=== PATIENT | male | born 1970 | race Caucasian/White ===

== ENCOUNTER → 2017-12-19 | Day surgery (SDC) | payer OTHER ==
[~2017-12-19] MED LIST: BUPIVACAINE HCL 0.5 % INJ/PF 30 ML SDV ONE; LIDOCAINE 1% INJ-PF (10 MG/ML) 30 ML SDV ONE; LIDOCAINE 2% INJ (20 MG/ML) 20 ML MDV ONE; METHYLPREDNISOLONE ACETATE INJ 40 MG/1 ML ML ONE
--- NOTE | 2017-12-19 08:58 | Operative Report ---
DATE OF PROCEDURE: [12/19/17] ANESTHESIA: [local] COMPLICATIONS: [none] CONSENT: A full description of the procedure was provided including benefits as well as possible complications. All questions were answered and informed consent was given and signed. ASA guidelines for fasting were verified prior to sedation. PROCEDURE IN DETAIL The patient was brought into the fluoroscopy suite and positioned into the prone position on the fluoroscopy table and allowed to adjust to a position of comfort. A grounding pad was placed on the [LEFT] thigh. The lumbar region was widely prepped with a chloraprep solution, allowed to air dry and draped in standard sterile surgical fashion. Local anesthesia was provided by [2] mL of [1 ]% [lidocaine] delivered with a 25 g needle. A 17g 100mm radiofrequency introducer needle was placed to the planned anatomic targets guided with intermittent fluoroscopy with a perpendicular approach to terminally place at the junction of the superior articular process and the transverse process of the [RIGHT] L4 and the base of the sacral ala on the [ RIGHT] for the L5 medial branch nerve. The stylets were removed and radiofrequency probes with a 4mm active tip were then inserted. Needle tip position of the probes was verified in the AP, oblique, and lateral views. At each site, the medial branch nerve was stimulated at 2 Hz to a maximum 1-2 volts determined to finalize safe needle and electrode placement. The patient was awake and responsive during this portion of the procedure. Each target was anesthetized with 1-2 mL of [2]% [lidocaine] for anesthesia for lesioning and then each target was lesioned at 80 degrees Celsius for 2 minutes and 30 seconds. Tissue impedences were noted to be between 250 and 500 Ohms. The procedure then was performed in the exact manner on the left at the same levels in the same manner. When completed, 1 cc of solution of 0.25% marcaine with 40mg of depomedrol was placed in each needle. The electrodes and needles were then removed and bandages placed over the needle placement sites bilaterally, the patient then returned to the supine position on a stretcher and transported to the recovery room without hemodynamic, neurologic, or allergic reactions. Fluoroscopic images were printed for hard copy recording and digitally archived. POST PROCEDURE EVALUATION: The patient was comfortable in the recovery room. The patient is aware that pain may worsen before remitting and 4-6 weeks may be required prior to the onset of pain relief. IMPRESSION: 1. Technically successful [Bilateral] L4 and L5 radiofrequency neurotomy for denervation on the bilaterally without complication. 2. RTC in [6] weeks. 3. Estimated Blood Loss: [1ml]
== END ==
LOC: RAD 07:35
PROVIDERS: ATTEND Student in an Organized Health Care Education/Training Program
DX: M47.817 Spondylosis without myelopathy or radiculopathy, lumbosacral region (principal)
CPT/HCPCS: 64635 ×2; 64636 ×2; J3490 ×3; J1020

== ENCOUNTER 2018-03-06 10:32 | Day surgery (SDC) | payer OTHER ==
[2018-03-06] MEDS ORDERED: PROPOFOL INJ 200 MG/20 ML VIAL IV ONE (12:21)
[2018-03-06] MEDS ORDERED: PROMETHAZINE HCL INJ 25 MG/1 ML VIAL IV PRN ×2 (12:31)
[2018-03-06] MEDS ORDERED: MEPERIDINE HCL/PF INJ 25 MG/1 ML DISP.SYRIN IV PRN (12:31)
[2018-03-06] MEDS ORDERED: OXYCODONE-ACETAMINOPHEN 5-325 MG TABLET PO PRN ×2 (12:31)
[2018-03-06] MEDS ORDERED: DIPHENHYDRAMINE HCL 50 MG/ML VIAL IV PRN (12:31)
[2018-03-06] MEDS ORDERED: FENTANYL CITRATE INJ/PF 100 MCG/2 ML AMPUL IV PRN ×3 (12:31)
[2018-03-06] MEDS ORDERED: MIDAZOLAM 2 MG/2 ML INJ ONE (12:39)
[2018-03-06] MEDS ORDERED: FENTANYL CITRATE INJ/PF 100 MCG/2 ML AMPUL ONE (12:39)
[2018-03-06] MEDS ORDERED: SIMETHICONE 80 MG TAB.CHEW PO PRN (13:37)
[2018-03-06] MEDS ORDERED: ACETAMINOPHEN 325 MG TABLET PO PRN (13:37)
[2018-03-06] MEDS ORDERED: PROMETHAZINE HCL INJ 25 MG/1 ML VIAL INJ PRN (13:40)
[2018-03-06] MEDS ORDERED: DEXTROSE 5%-1/2 NORMAL SALINE 1,000 ML IV PRN (13:41)
--- NOTE | 2018-03-06 14:26 | Operative Report ---
Operative Report DATE OF SURGERY: 03/06/18 Operative Report: The risks, benefits and alternatives of the procedure including risks of bleeding, perforation requiring surgery are explained to the patient in detail and informed consent is obtained. The patient was taken to the operating room and placed in the left, lateral decubital position. Timeout was called. Propofol medications administered. A rectal examination is done which did not reveal any masses, tears or fissures. An Olympus videoscope was inserted into the patient's rectum. The scope was then carefully advanced all the way to the cecum. The cecum was identified by the usual anatomical landmarks including the ileocecal valve as well as the appendiceal office. Photodocumentation is obtained. The scope was then sequentially pulled back via the various segments of the colon including the ascending colon, hepatic flexure, transverse colon, splenic flexure, descending colon and and finally in to the rectosigmoid portions of the colon. Retroflexion maneuvers performed. The risks benefits and alternatives of the procedure explained to the patient in detail and informed consent is obtained.A GIF Olympus video scope was inserted into the patient's mouth and hypopharynx ,the esophagus is identified intubated and insufflated, the scope was then advanced through the esophagus stomach and duodenum, retroflexion maneuver is done, the esophagus stomach and first and second portions of the duodenum examined PREOPERATIVE DIAGNOSIS: Nausea, melena. Change of bowel habits POSTOPERATIVE DIAGNOSIS: Right side colon Information status post biopsy. Internal hemorrhoids. Gastritis. Gastric erosion status post biopsy. Duodenitis OPERATION: Colonoscopy with biopsy. EGD with biopsy SURGEON: FARZAD EMERSON ANESTHESIA: LMAC TISSUE REMOVED OR ALTERED: As noted above. COMPLICATIONS: None. ESTIMATED BLOOD LOSS: None. INTRAOPERATIVE FINDINGS: As noted above. PROCEDURE: Patient tolerated the procedure well. No immediate postprocedure complications are noted. Patient discharged in good condition. Discharge date 03/06/2018. Discharge diet: Regular. Discharge activity: Regular. 2-3 week follow-up to discuss findings. Patient is instructed to call the office or proceed to the emergency room should there be any further problems or questions. We will wait on the pathology.
[2018-03-06 15:19] VITALS: BP 126/67
== END 2018-03-06 14:45 | disposition home or self-care (01) ==
LOC: OROUT 10:32
PROVIDERS: ATTEND Internal Medicine Gastroenterology
PROC: 0DBE8ZX Excision of Large Intestine, Via Natural or Artificial Opening Endoscopic, Diagnostic (ICD-10-PCS; principal; 2018-03-06 12:30)
PROC: 0DB68ZX Excision of Stomach, Via Natural or Artificial Opening Endoscopic, Diagnostic (ICD-10-PCS; 2018-03-06 12:30)
DX: K52.832 Lymphocytic colitis (principal); K64.8 Other hemorrhoids; K29.70 Gastritis, unspecified, without bleeding; K29.80 Duodenitis without bleeding; R19.4 Change in bowel habit; K92.1 Melena; R11.0 Nausea
CPT/HCPCS: 43239; 45380; 88305 ×2; J2250; J3010; J2704; 813

== ENCOUNTER → 2018-09-28 | Outpatient (CLI) | payer OTHER ==
--- NOTE | 2018-09-28 15:15 | RADIOLOGY REPORT (SQ) ---
EXAM DESCRIPTION: CHEST PA/LATERAL COMPLETED DATE/TIME: 09/28/2018 3:07 pm REASON FOR STUDY: WHEEZING COMPARISON: None. TECHNIQUE: Frontal and lateral radiographic views of the chest acquired. NUMBER OF VIEWS: Two view. LIMITATIONS: None. FINDINGS: LUNGS AND PLEURA: No opacities, masses or pneumothorax. No pleural effusion. MEDIASTINUM AND HILAR STRUCTURES: No masses or contour abnormalities. HEART AND VASCULAR STRUCTURES: Heart normal size. No evidence for failure. BONES: No acute findings. HARDWARE: None in the chest. OTHER: No other significant finding. IMPRESSION: NO SIGNIFICANT RADIOGRAPHIC FINDING IN THE CHEST. TECHNICAL DOCUMENTATION: JOB ID: [id number] [employer]- All Rights Reserved Reading location - IP/workstation name: [email or web address]
== END ==
LOC: OD 14:56
PROVIDERS: ATTEND Nurse Practitioner Family
DX: R06.2 Wheezing (principal)
CPT/HCPCS: 71046

== ENCOUNTER 2018-09-29 23:42 | Inpatient (IN) | payer OTHER ==
[2018-09-29] MEDS ORDERED: MAGNESIUM SULFATE/D5W 2 GM/200 ML RTUPB IV ONE (23:54)
[2018-09-29] MEDS ORDERED: IPRATROPIUM/ALBUTEROL 0.5-2.5 MG/3 ML AMPUL NEB ONE (23:54)
[2018-09-30] MEDS ORDERED: KETOROLAC TROMETHAMINE INJ/PF 30 MG/1 ML SDV IV ONE (00:01)
--- NOTE | 2018-09-30 00:03 | ER Document Report ---
ED General - General Stated Complaint: SHORTNESS OF BREATH Time Seen by Provider: 09/29/18 23:54 Primary Care Provider: ONEYDA FORD FNP-BC [Primary Care Provider] - Follow up as needed Notes: Patient is a 47-year-old male with a history of smoking. No history of asthma. Presents with 5 days of worsening difficulty breathing and wheezing. He has pain in his chest whenever he coughs. He has subjective fevers at home. No vomiting or diarrhea. Paramedics gave him a DuoNeb treatment as well as Solu- Medrol in route. He takes medications for history of epilepsy and PTSD. He denies any medical allergies. No other complaints at this time. TRAVEL OUTSIDE OF THE [place] IN LAST 30 DAYS: No - Related Data Allergies/Adverse Reactions: No Known Allergies Allergy (Verified 03/23/15 23:04) Past Medical History - Social History Smoking Status: Current Every Day Smoker Frequency of alcohol use: None Drug Abuse: None Family History: Reviewed & Not Pertinent - Past Medical History Cardiac Medical History: Denies: Hx Coronary Artery Disease, Hx Heart Attack, Hx Hypertension Pulmonary Medical History: Denies: Hx Asthma, Hx Bronchitis, Hx COPD, Hx Pneumonia Neurological Medical History: Reports: Hx Seizures - LAST X 1 WEEK AGO. Denies: Hx Cerebrovascular Accident Musculoskeletal Medical History: Denies Hx Arthritis Psychiatric Medical History: Reports: Hx Depression - Immunizations Hx Diphtheria, Pertussis, Tetanus Vaccination: Yes Hx Pneumococcal Vaccination: 08/05/15 Review of Systems - Review of Systems Notes: My Normal Review Basic REVIEW OF SYSTEMS: CONSTITUTIONAL : Fevers EENT: Denies eye, ear, throat, or mouth pain or symptoms. Denies nasal or sinus congestion. CARDIOVASCULAR: Pain with coughing and breathing. RESPIRATORY: Difficulty breathing and wheezing. GASTROINTESTINAL: Denies abdominal pain. Denies nausea, vomiting, or diarrhea. MUSCULOSKELETAL: Denies neck or back pain or joint pain or swelling. SKIN: Denies rash or skin lesions. NEUROLOGICAL: Denies altered mental status or loss of consciousness. Denies headache. Denies weakness or paralysis or loss of use of either side. Denies problems with gait or speech. Denies sensory or motor loss. ALL OTHER SYSTEMS REVIEWED AND NEGATIVE. Physical Exam - Vital signs Vitals: Temp 98.5 F 09/29/18 23:42 - Notes Notes: General Appearance: Well nourished, alert, cooperative, no acute distress, moderate obvious discomfort. Vitals: reviewed, See vital signs table. Head: no swelling or tenderness to the head Eyes: PERRL, EOMI, Conjuctiva clear Mouth: No decreasd moisture Neck: Supple, no neck tenderness, No thyromegaly Lungs: Diffuse wheezing. Fair air exchange. Some rhonchorous breath sounds. Heart: Normal rate, Regular rythm, No murmur, no rub Abdomen: Normal BS, soft, No rigidity, No abdominal tenderness, No guarding, no rebound, no abdominal masses, no organomegaly Extremities:good pulses in all extremities, no swelling or tenderness in the extremities, no edema. Skin: warm, dry, appropriate color, no rash Neuro: speech clear, oriented x 3, normal affect, responds appropriately to questions. Course - Re-evaluation Re-evalutation: 09/30/18 01:30 Clinically patient looks improved. His lung hudson sound improved as well. He still has some scattered wheezing but is moving air much better. I will give him 1 more breathing treatment. I will give him a dose of doxycycline his chest x-ray shows evidence of developing pneumonia. I will monitor him for low bit longer to make sure his oxygen stays within normal range and that his difficulty breathing does not return. 09/30/18 03:51 I did try to wean the patient off oxygen twice. Both times O2 saturations went into the 80s. He cannot tolerate nasal cannula. He says he is too much congestion and his sats will not maintain with that. I therefore placed him on a Ventimask. With the Ventimask he is 95%. He still has some scattered wheezing however it is much improved as opposed to when he first arrived. Being that the patient has pneumonia, wheezing, and oxygen requirement I feel it is appropriate to have admitted to the hospital. I did discuss the case with Dr. Cordova, her hospitalist, who agrees to admit the patient. Dictation of this chart was performed using voice recognition software; therefore, there may be some unintended grammatical errors. - Vital Signs Vital signs: Temp Pulse Resp BP Pulse Ox 98.5 F 24 H 123/58 L 94 09/29/18 23:42 09/30/18 03:00 09/30/18 02:01 09/30/18 03:00 - Laboratory Result Diagrams: 09/29/18 23:55 09/29/18 23:55 Laboratory results interpreted by me: 09/29/18 09/29/18 23:55 23:55 WBC 12.5 H RBC 3.88 L Hgb 13.2 L MCV 98 H MCH 34.1 H Seg Neutrophils % 83.5 H Lymphocytes % 10.3 L Absolute Neutrophils 10.4 H Sodium 134.8 L Chloride 97 L Glucose 123 H - EKG Interpretation by Me Additional EKG results interpreted by me: 09/29/18 23:59 EKG is reviewed and interpreted by me. EKG shows sinus rhythm with a rate of [address] segment elevation or depression. No ischemic T wave inversions. TN interval, QRS duration, QT intervals are within normal range. No EKGs available for comparison. Discharge - Discharge Clinical Impression: Pneumonia Qualifiers: Pneumonia type: due to unspecified organism Laterality: bilateral Lung location: unspecified part of lung Qualified Code(s): J18.9 - Pneumonia, unspecified organism Condition: Stable Disposition: ADMITTED OBSERVATION Admitting Provider: Hospitalist Unit Admitted: Telemetry Referrals: ONEYDA FORD FNP-BC [Primary Care Provider] - Follow up as needed
[2018-09-30] MEDS: MAGNESIUM SULFATE/D5W 1 GM/100 ML RTUPB IV SCH ×2 (00:05→00:58)
[2018-09-30 00:06] LABS: VENOUS BLOOD BASE EXCESS 0.9 mmol/L; VENOUS BLOOD PCO2 43.7 mmHg (35-63); VENOUS BLOOD PH 7.39 (7.30-7.42)
[2018-09-30 00:13] LABS: ABSOLUTE EOSINOPHILS # (AUTO) 0.1 10^3/uL (0.0-0.6); ABSOLUTE LYMPHOCYTES (AUTO) 1.3 10^3/uL (0.5-4.7); ABSOLUTE MONOCYTES (AUTO) 0.6 10^3/uL (0.1-1.4); ABSOLUTE NEUT (AUTO) 10.4 10^3/uL (1.7-8.2); BASOPHILS % (AUTO) 0.3 % (0-2); EOSINOPHILS % (AUTO) 0.9 % (0-6); HEMATOCRIT 38.2 % (37.9-51.0); HEMOGLOBIN 13.2 g/dL (13.5-17.0); LYMPHOCYTES % (AUTO) 10.3 % (13-45); MEAN CORPUSCULAR HEMOGLOBIN 34.1 pg (27.0-33.4); MEAN CORPUSCULAR HGB CONC 34.7 g/dL (32.0-36.0); MEAN CORPUSCULAR VOLUME 98 fl (80-97); PLATELET COUNT 203 10^3/uL (150-450); RED BLOOD COUNT 3.88 10^6/uL (4.35-5.55); RED CELL DISTRIBUTION WIDTH 13.4 % (11.5-14.0); SEGMENTED NEUTROPHILS % (AUTO) 83.5 % (42-78); TOTAL CELLS COUNTED % (AUTO) 100 %; WHITE BLOOD COUNT 12.5 10^3/uL (4.0-10.5)
[2018-09-30 00:19] LABS: ANION GAP 10 (5-19); BLOOD UREA NITROGEN 13 mg/dL (7-20); CALCIUM 8.7 mg/dL (8.4-10.2); CARBON DIOXIDE 28 mmol/L (22-30); CHLORIDE 97 mmol/L (98-107); GLUCOSE 123 mg/dL (75-110); POTASSIUM 3.7 mmol/L (3.6-5.0); SODIUM 134.8 mmol/L (137-145)
--- NOTE | 2018-09-30 01:12 | RADIOLOGY REPORT (SQ) ---
EXAM DESCRIPTION: XR CHEST 1 VIEW COMPLETED DATE/TME: 09/29/2018 23:54 CLINICAL HISTORY: 47 years, Male, dyspnea, wheezing COMPARISON: None. NUMBER OF VIEWS: TECHNIQUE: LIMITATIONS: None. FINDINGS: There is infiltrate at the right lung base, compatible with pneumonia. There may also be patchy infiltrate in the left mid lung. The heart and mediastinum are unremarkable. Pulmonary vascularity appears normal. IMPRESSION: Pneumonia. copyright 2010 [employer]- All Rights Reserved
[2018-09-30 01:15] LABS: A TYPE INFLUENZA AG NEGATIVE (NEGATIVE); B INFLUENZA AG NEGATIVE (NEGATIVE)
[2018-09-30] MEDS ORDERED: ALBUTEROL SULFATE 0.083% NEB 2.5 MG/3 ML AMPUL NEB ONE (01:30)
[2018-09-30] MEDS ORDERED: DOXYCYCLINE HYCLATE 100 MG TABLET PO ONE (01:30)
[2018-09-30] MEDS ORDERED: HYDRALAZINE HCL INJ/PF 20 MG/1 ML SDV IV PRN (03:51)
[2018-09-30] MEDS ORDERED: CHLORPHENIRAMINE MALEATE 4 MG TABLET PO ONE (03:51)
[2018-09-30] MEDS ORDERED: IPRATROPIUM/ALBUTEROL 0.5-2.5 MG/3 ML AMPUL NEB PRN (03:52)
[2018-09-30] MEDS ORDERED: ACETAMINOPHEN 325 MG TABLET PO PRN (03:52)
[2018-09-30] MEDS ORDERED: GUAIFENESIN SYRP 200 MG/10 ML UDC PO PRN (03:52)
[2018-09-30] MEDS ORDERED: FLUTICASONE NASAL SPRAY 50 MCG/SPRY 120 SPRAY/16 GM NASL ONE (04:30)
[2018-09-30] MEDS: LEVOFLOXACIN 750 MG/D5W RTU 750 MG/150 ML RTUPB IV SCH (04:52)
[2018-09-30 05:21] LABS: URINE AMPHETAMINES SCREEN UNCONFIRMED POSITIVE; URINE BARBITURATES SCREEN UNCONFIRMED POSITIVE; URINE BENZODIAZEPINES SCREEN NEGATIVE; URINE COCAINE SCREEN NEGATIVE; URINE MARIJUANA (THC) SCREEN UNCONFIRMED POSITIVE; URINE METHADONE SCREEN NEGATIVE; URINE PHENCYCLIDINE SCREEN NEGATIVE
[2018-09-30] MEDS: HEPARIN SOD (PORCINE) 5,000 UNIT/ML 1 ML SYRINGE SUBCUT SCH ×3 (05:47→22:06)
[2018-09-30 06:12] LABS: HEMATOCRIT 37.8 % (37.9-51.0); HEMOGLOBIN 13.1 g/dL (13.5-17.0); MEAN CORPUSCULAR HGB CONC 34.6 g/dL (32.0-36.0); MEAN CORPUSCULAR VOLUME 98 fl (80-97); PLATELET COUNT 219 10^3/uL (150-450); RED BLOOD COUNT 3.85 10^6/uL (4.35-5.55); RED CELL DISTRIBUTION WIDTH 13.3 % (11.5-14.0); WHITE BLOOD COUNT 13.4 10^3/uL (4.0-10.5)
[2018-09-30 06:38] LABS: ABSOLUTE LYMPHOCYTES# (MANUAL) 0.5 10^3/uL (0.5-4.7); ABSOLUTE MONOCYTES # (MANUAL) 0.1 10^3/uL (0.1-1.4); ABSOLUTE NEUTROPHILS# (MANUAL) 12.7 10^3/uL (1.7-8.2); BASOPHILS % (MANUAL) 0 % (0-2); EOSINOPHILS % (MANUAL) 0 % (0-6); LYMPHOCYTES % (MANUAL) 4 % (13-45); MONOCYTES % (MANUAL) 1 % (3-13); SEGMENTED NEUTROPHILS % (MAN) 95 % (42-78); TOTAL CELLS COUNTED 100
--- NOTE | 2018-09-30 06:38 | PDOC H&P ---
History of Present Illness Admission Date/PCP: 09/30/18 04:02 ONEYDA FORD, [facility] Patient complains of: Shortness of breath and nonproductive cough History of Present Illness: FARIDA CHO is a 47 year old male with a past medical history of PTSD and epilepsy without seizures greater than 12 months. Patient presents with 5 days of shortness of breath and nonproductive cough developing fever he is prompted to seek evaluation in the emergency room where he is found to have leukocytosis, hypoxia and bilateral infiltrates on chest x-ray. He started on empiric antibiotics and referred to the hospitalist for admission. He admits uncontrolled GERD, tobacco dependence, denies recent rhinorrhea, sore throat, antibiotic use, tobacco. He received Pneumovax this year. Past Medical History Cardiac Medical History: Denies: Coronary Artery Disease, Myocardial Infarction, Hypertension Pulmonary Medical History: Denies: Asthma, Bronchitis, Chronic Obstructive Pulmonary Disease (COPD), Pneumonia Neurological Medical History: Reports: Seizures - LAST X 1 WEEK AGO Musculoskeltal Medical History: Denies: Arthritis Psychiatric Medical History: Reports: Depression, Other - PTSD Hematology: Denies: Anemia Social History Information Source: Patient Smoking Status: Current Every Day Smoker - Advance Directive Resuscitation Status: Full Code Family History Family History: Hypertension Parental Family History Reviewed: Yes Children Family History Reviewed: Yes Sibling(s) Family History Reviewed.: Yes Medication/Allergy Home Medications: Carbamazepine [Tegretol 200 Mg Tablet] 300 mg PO Q12 #90 tablet 03/24/15 Acetaminophen with Codeine [Tylenol #3 Tablet] 1 each PO Q4HP PRN 03/05/18 Albuterol Sulfate [Proair Hfa] 8.5 gm IH ASDIR PRN 03/05/18 Butalb/Acetaminophen/Caffeine [Sqytpzbl-Rkvpsqyfvunfs-Fkut Cp] 1 cap PO Q4 PRN 03/05/18 Dextroamphetamine/Amphetamine [Adderall Xr 5 mg Capsule] 5 mg PO DAILY 03/05/18 Diphenoxylate HCl/Atrop Sulf [Lomotil 2.5 mg Tablet] 200 tab PO ASDIR PRN 03/05/18 Dronabinol [Marinol 2.5 mg Capsule] 2.5 mg PO QID 03/05/18 Escitalopram Oxalate 20 mg PO ASDIR PRN 03/05/18 Lamotrigine [Lamotrigine ER] 100 mg PO ASDIR PRN 03/05/18 Clonazepam [Klonopin] 1 mg PO DAILY 03/06/18 Diclofenac Epolamine [Flector] 1 each TP Q2DAYS 03/06/18 Diclofenac Potassium [Zipsor] 50 mg PO QID 03/06/18 Iron 18 mg PO DAILY 03/06/18 Magnesium Oxide [Magnesium] 400 mg PO DAILY 03/06/18 Multivitamin [Multiple Vitamins] 1 each PO DAILY 03/06/18 [place]-3 Fatty Acids/Fish Oil [Fish Oil 1,000 mg Capsule] 1 each PO DAILY 03/06/18 Allergies/Adverse Reactions: No Known Allergies Allergy (Verified 03/23/15 23:04) Review of Systems Constitutional: ABSENT: chills, fever(s), headache(s), weight gain, weight loss Eyes: ABSENT: visual disturbances Ears: ABSENT: hearing changes Cardiovascular: ABSENT: chest pain, dyspnea on exertion, edema, orthropnea, palpitations Respiratory: ABSENT: cough, hemoptysis Gastrointestinal: ABSENT: abdominal pain, constipation, diarrhea, hematemesis, hematochezia, nausea, vomiting Genitourinary: ABSENT: dysuria, hematuria Musculoskeletal: ABSENT: joint swelling Integumentary: ABSENT: rash, wounds Neurological: ABSENT: abnormal gait, abnormal speech, confusion, dizziness, focal weakness, syncope Psychiatric: ABSENT: anxiety, depression, homidical ideation, suicidal ideation Endocrine: ABSENT: cold intolerance, heat intolerance, polydipsia, polyuria Hematologic/Lymphatic: ABSENT: easy bleeding, easy bruising Physical Exam Vital Signs: Temp Pulse Resp BP Pulse Ox 98.6 F 26 H 123/58 L 95 09/30/18 05:57 09/30/18 06:00 09/30/18 02:01 09/30/18 06:00 Intake & Output 09/28/18 09/29/18 09/30/18 11:59 11:59 11:59 Intake Total 350 Output Total 400 Balance -50 Weight 89.2 kg General appearance: PRESENT: cooperative, mild distress. ABSENT: disheveled, hard of hearing Head exam: PRESENT: atraumatic, normocephalic Eye exam: PRESENT: conjunctiva pink, EOMI, PERRLA. ABSENT: scleral icterus Ear exam: PRESENT: normal external ear exam Mouth exam: PRESENT: moist, tongue midline Neck exam: ABSENT: carotid bruit, JVD, lymphadenopathy, thyromegaly Respiratory exam: PRESENT: accessory muscle use, retraction, rhonchi, symmetrical, tachypnea Cardiovascular exam: PRESENT: RRR. ABSENT: diastolic murmur, rubs, systolic murmur Pulses: PRESENT: normal dorsalis pedis pul Vascular exam: PRESENT: normal capillary refill GI/Abdominal exam: PRESENT: normal bowel sounds, soft. ABSENT: distended, gua rding, mass, organolmegaly, rebound, tenderness Rectal exam: PRESENT: deferred Extremities exam: PRESENT: full ROM. ABSENT: calf tenderness, clubbing, pedal edema Neurological exam: PRESENT: alert, awake, oriented to person, oriented to place, oriented to time, oriented to situation, CN II-XII grossly intact. ABSENT: burton r sensory deficit Psychiatric exam: PRESENT: depressed - Denies suicidal or homicidal ideation, unusual affect, other. ABSENT: agitated Skin exam: PRESENT: dry, intact, warm. ABSENT: cyanosis, rash Results Laboratory Results: 09/29/18 23:55 09/29/18 09/29/18 09/29/18 23:55 23:55 23:55 WBC 12.5 H RBC 3.88 L Hgb 13.2 L Hct 38.2 MCV 98 H MCH 34.1 H MCHC 34.7 RDW 13.4 Plt Count 203 Seg Neutrophils % 83.5 H Lymphocytes % 10.3 L Monocytes % 5.0 Eosinophils % 0.9 Basophils % 0.3 Absolute Neutrophils 10.4 H Absolute Lymphocytes 1.3 Absolute Monocytes 0.6 Absolute Eosinophils 0.1 Absolute Basophils 0.0 VBG pH 7.39 VBG pCO2 43.7 VBG HCO3 26.0 VBG Base Excess 0.9 Sodium 134.8 L Potassium 3.7 Chloride 97 L Carbon Dioxide 28 Anion Gap 10 BUN 13 Creatinine 0.99 Est GFR ( Amer) > 60 Est GFR (Non-Af Amer) > 60 Glucose 123 H Calcium 8.7 Impressions: Chest X-Ray 09/29/18 23:54 IMPRESSION: Pneumonia. copyright 2010 [employer]- All Rights Reserved Assessment & Plan - Diagnosis (1) Pneumonia Qualifiers: Pneumonia type: due to unspecified organism Laterality: bilateral Lung location: unspecified part of lung Qualified Code(s): J18.9 - Pneumonia, unspecified organism Is this a current diagnosis for this admission?: Yes Plan: Possibly secondary to uncontrolled GERD. However denies recent seizure or aspiration. Empiric antibiotics initiated, DuoNeb, incentive spirometry and supplemental oxygen follow-up blood culture and CBC. (2) Epilepsy Is this a current diagnosis for this admission?: Yes Plan: Continue outpatient regiment per medication reconciliation (3) Tobacco abuse Is this a current diagnosis for this admission?: Yes Plan: Tobacco Dependence patient received tobacco cessation counseling and offered ni cotine replacement options (4) GERD (gastroesophageal reflux disease) Is this a current diagnosis for this admission?: Yes Plan: Prevacid twice daily and lifestyle modification - Time Time Spent: 50 to 70 Minutes
[2018-09-30] MEDS ORDERED: LACTULOSE SYRUP 20 GM/30 ML UDCUP PO ONE (06:39)
[2018-09-30 06:40] LABS: ANISOCYTOSIS SLIGHT; OVALOCYTES SLIGHT; POIKILOCYTOSIS SLIGHT; TOXIC GRANULATION 1+; TOXIC VACUOLATION PRESENT
[2018-09-30 06:41] LABS: PLATELET COMMENT ADEQUATE; TEAR DROP CELLS SLIGHT
[2018-09-30] MEDS: IPRATROPIUM/ALBUTEROL 0.5-2.5 MG/3 ML AMPUL NEB SCH ×3 (07:59→19:49)
[2018-09-30] MEDS: CLONAZEPAM 1 MG TABLET PO SCH (10:45)
[2018-09-30] MEDS: CARBAMAZEPINE 200 MG TABLET PO SCH ×2 (10:47→22:02)
[2018-09-30] MEDS: LAMOTRIGINE 100 MG TABLET PO SCH (17:26)
[2018-09-30] MEDS: LANSOPRAZOLE 30 MG TAB.RAP.DR PO SCH (17:27)
[2018-09-30] MEDS ORDERED: (PENDING PHARMACY ID) (Escitalopram Oxalate [Lexapro] 40 MG) PO SCH (22:00)
[2018-09-30] MEDS: ESCITALOPRAM OXALATE 10 MG TABLET PO SCH (22:01)
[2018-09-30] MEDS: HYDROCODONE/ACETAMINOPHEN 5-325 MG TABLET PO PRN (22:01)
[2018-09-30] MEDS: FLUTICASONE NASAL SPRAY 50 MCG/SPRY 120 SPRAY/16 GM NASL SCH (22:05)
[2018-10-01] MEDS: IPRATROPIUM/ALBUTEROL 0.5-2.5 MG/3 ML AMPUL NEB SCH ×4 (02:22→19:57)
[2018-10-01 04:48] LABS: ABSOLUTE LYMPHOCYTES (AUTO) 1.2 10^3/uL (0.5-4.7); ABSOLUTE MONOCYTES (AUTO) 0.5 10^3/uL (0.1-1.4); ABSOLUTE NEUT (AUTO) 5.4 10^3/uL (1.7-8.2); BASOPHILS % (AUTO) 0.4 % (0-2); EOSINOPHILS % (AUTO) 0.7 % (0-6); HEMATOCRIT 37.2 % (37.9-51.0); HEMOGLOBIN 13.2 g/dL (13.5-17.0); LYMPHOCYTES % (AUTO) 16.5 % (13-45); MEAN CORPUSCULAR HEMOGLOBIN 34.4 pg (27.0-33.4); MEAN CORPUSCULAR HGB CONC 35.3 g/dL (32.0-36.0); MEAN CORPUSCULAR VOLUME 97 fl (80-97); MONOCYTES % (AUTO) 7.4 % (3-13); PLATELET COUNT 229 10^3/uL (150-450); RED BLOOD COUNT 3.82 10^6/uL (4.35-5.55); RED CELL DISTRIBUTION WIDTH 13.5 % (11.5-14.0); TOTAL CELLS COUNTED % (AUTO) 100 %; WHITE BLOOD COUNT 7.1 10^3/uL (4.0-10.5)
[2018-10-01 05:07] LABS: ANION GAP 12 (5-19); BLOOD UREA NITROGEN 11 mg/dL (7-20); CALCIUM 8.7 mg/dL (8.4-10.2); CARBON DIOXIDE 24 mmol/L (22-30); CHLORIDE 101 mmol/L (98-107); GLUCOSE 124 mg/dL (75-110); POTASSIUM 4.6 mmol/L (3.6-5.0); SODIUM 136.6 mmol/L (137-145)
[2018-10-01] MEDS: LEVOFLOXACIN 750 MG/D5W RTU 750 MG/150 ML RTUPB IV SCH (05:19)
[2018-10-01] MEDS: HEPARIN SOD (PORCINE) 5,000 UNIT/ML 1 ML SYRINGE SUBCUT SCH ×3 (05:22→22:30)
[2018-10-01] MEDS: LANSOPRAZOLE 30 MG TAB.RAP.DR PO SCH ×2 (05:23→17:32)
[2018-10-01] MEDS ORDERED: DEXTROAMPHETAMINE PO SCH ×2 (08:00→12:00)
[2018-10-01] MEDS ORDERED: AMPHETAMINE PO SCH ×2 (08:00→12:00)
[2018-10-01] MEDS: LAMOTRIGINE 100 MG TABLET PO SCH ×3 (09:53→17:31)
[2018-10-01] MEDS: CLONAZEPAM 1 MG TABLET PO SCH (09:53)
[2018-10-01] MEDS: MAGNESIUM OXIDE 400 MG TABLET PO SCH (09:53)
[2018-10-01] MEDS: CARBAMAZEPINE 200 MG TABLET PO SCH ×2 (09:54→22:27)
[2018-10-01] MEDS: FLUTICASONE NASAL SPRAY 50 MCG/SPRY 120 SPRAY/16 GM NASL SCH ×2 (09:54→22:28)
[2018-10-01] MEDS: BUTALB/ACETAMINOPHEN/CAFFEINE 1 TAB EACH PO PRN ×2 (09:57→22:28)
--- NOTE | 2018-10-01 10:43 | PDOC PROGRESS REPORT ---
Subjective Progress Note for:: 10/01/18 Subjective:: This is a 47 yr old male with a PMH of PTSD, depression and epilepsy who presented with increasing SOB and cough. He was initially in distress and was at 91% on room air and was placed on 5L of O2. CXR showed right lower lobe pneumonia. No acute issue overnight. This morning, he says his SOB has improved but not at baseline yet. He is still on 5 lpm via NC. Will wean down on O2. expressed she was upset yesterday that somebody told him he is a "junkie" and that she knows he has never used any recreational drugs. Clarified this with patient and that I asked yesterday about drug use as it is a routine and standard medical question and knows patient denies recreational drug use. Explained I am aware his home medications explain his UDS results. Both verbalized understanding. Patient denies previous history of asthma or COPD. He does have wheezing b ilaterally today. He does have history of smoking. Reason For Visit: PNEUMONIA Physical Exam Vital Signs: Temp Pulse Resp BP Pulse Ox 98.1 F 74 18 132/67 H 98 10/01/18 07:42 10/01/18 07:52 10/01/18 07:52 10/01/18 07:42 10/01/18 07:52 Pulse Oximeter Continuous Start: 09/30/18 03:52 Freq: RTQ4 Status: Active Protocol: Document 10/01/18 07:52 [facility] (Rec: 10/01/18 08:11 [facility] [id number]) Pulse Oximetry Assessment Oxygen Saturation (92-100) 98 Oxygen Flow Rate (L/min) 3 Oxygen Delivery Method Nasal Cannula Equipment Usage Equipment in Use Continuous SpO2 Machine # 9 Intake & Output 09/30/18 10/01/18 10/02/18 06:59 06:59 06:59 Intake Total 350 766 150 Output Total 400 Balance -50 766 150 Weight 196 lb 10.437 oz 196 lb 6.91 oz General appearance: PRESENT: no acute distress, well-developed, well-nourished Head exam: PRESENT: atraumatic, normocephalic Eye exam: PRESENT: conjunctiva pink, EOMI, PERRLA. ABSENT: scleral icterus Ear exam: PRESENT: normal external ear exam Mouth exam: PRESENT: moist, tongue midline Neck exam: ABSENT: carotid bruit, JVD, lymphadenopathy, thyromegaly Respiratory exam: PRESENT: accessory muscle use, rales - right base, rhonchi, wheezes Cardiovascular exam: PRESENT: RRR. ABSENT: diastolic murmur, rubs, systolic murmur Pulses: PRESENT: normal dorsalis pedis pul GI/Abdominal exam: PRESENT: normal bowel sounds, soft. ABSENT: distended, guarding, mass, organolmegaly, rebound, tenderness Rectal exam: PRESENT: deferred Neurological exam: PRESENT: alert, awake, oriented to person, oriented to place, oriented to time, oriented to situation, CN II-XII grossly intact. ABSENT: motor sensory deficit Results Laboratory Results: 10/01/18 03:51 10/01/18 03:51 10/01/18 10/01/18 03:51 03:51 WBC 7.1 RBC 3.82 L Hgb 13.2 L Hct 37.2 L MCV 97 MCH 34.4 H MCHC 35.3 RDW 13.5 Plt Count 229 Seg Neutrophils % 75.0 Lymphocytes % 16.5 Monocytes % 7.4 Eosinophils % 0.7 Basophils % 0.4 Absolute Neutrophils 5.4 Absolute Lymphocytes 1.2 Absolute Monocytes 0.5 Absolute Eosinophils 0.0 Absolute Basophils 0.0 Sodium 136.6 L Potassium 4.6 Chloride 101 Carbon Dioxide 24 Anion Gap 12 BUN 11 Creatinine 0.77 Est GFR ( Amer) > 60 Est GFR (Non-Af Amer) > 60 Glucose 124 H Calcium 8.7 Impressions: Chest X-Ray 09/29/18 23:54 IMPRESSION: Pneumonia. copyright 2010 [employer]- All Rights Reserved Assessment & Plan - Diagnosis (1) Pneumonia Qualifiers: Pneumonia type: due to unspecified organism Laterality: bilateral Lung location: unspecified part of lung Qualified Code(s): J18.9 - Pneumonia, unspecified organism Is this a current diagnosis for this admission?: Yes Plan: Improving. Currently on 5 lpm. Will try to wean down on O2. Continue Levaquin. Sputum culture ordered. (2) Obstructive lung disease Is this a current diagnosis for this admission?: Yes Plan: Possible obstructive lung disease. Denies prior history of COPD or asthma. He has bilateral wheezing this morning. Will add prednisone. Continue breathing treatments. Will order a bedside spirometry. (3) Seizure disorder Is this a current diagnosis for this admission?: Yes Plan: Continue carbamazepine. (4) Depression Is this a current diagnosis for this admission?: Yes Plan: Continue lexapro. (5) Gastritis and duodenitis Is this a current diagnosis for this admission?: Yes Plan: Noted recent EGD which showed gastritis and duodenitis. Diclofenac not resumed. Recommend discontinuing diclofenac on discharge. - Time Time Spent with patient: 25-34 minutes
--- NOTE | 2018-10-01 15:07 | RADIOLOGY REPORT (SQ) ---
EXAM DESCRIPTION: CT CHEST WITHOUT COMPLETED DATE/TIME: 10/01/2018 2:44 pm REASON FOR STUDY: cough, hypoxia COMPARISON: None. TECHNIQUE: CT scan performed of the chest without intravenous contrast. Images reviewed with lung, soft tissue and bone windows. Reconstructed coronal and sagittal MPR images reviewed. All images st ored on PACS. All CT scanners at this facility use dose modulation, iterative reconstruction, and/or weight based d osing when appropriate to reduce radiation dose to as low as reasonably achievable (ALARA). [facility]: Dose Right [facility]: CareDose [facility]: Dose Right [facility]: Teradose 4D [facility]: TapZilla RADIATION DOSE: CT Rad equipment meets quality standard of care and radiation dose reduction techniq ues were employed. CTDIvol: 15.1 mGy. DLP: 558 mGy-cm. mGy. LIMITATIONS: No technical limitations. FINDINGS: LUNGS AND PLEURA: Diffuse ground-glass attenuation with superimposed interlobular septal t hickening, so-called crazy paving pattern. Relative sparing of the lung bases otherwise symmetric. No effusions. HILAR AND MEDIASTINAL STRUCTURES: No identified masses or abnormal nodes. No obvious aneurysm. HEART AND VASCULAR STRUCTURES: No aneurysm. No pericardial effusion. UPPER ABDOMEN: No significant findings. Limited exam. THYROID AND OTHER SOFT TISSUES: No masses. No adenopathy. BONES: Nothing acute. HARDWARE: None in the chest. OTHER: No other significant findings. IMPRESSION: Diffuse ground-glass attenuation and interlobular septal thickening. Pattern is nonspec ific but commonly associated with bacterial pneumonia, cryptogenic organizing pneumonia, ARDS, pulmon wilfredo alveolar proteinosis, among others. TECHNICAL DOCUMENTATION: JOB ID: [id number] Quality ID # [id number]: Final reports with documentation of one or more dose reduction techniques (e.g., Au tomated exposure control, adjustment of the mA and/or kV according to patient size, use of iterative reconstruction technique) 2010 [employer]- All Rights Reserved Reading location - IP/workstation name: [email or web address]
[2018-10-01] MEDS: PREDNISONE 20 MG TABLET PO SCH (17:31)
[2018-10-01] MEDS: HYDROCODONE/ACETAMINOPHEN 5-325 MG TABLET PO PRN (17:49)
[2018-10-01] MEDS: ESCITALOPRAM OXALATE 10 MG TABLET PO SCH (22:28)
[2018-10-02] MEDS: IPRATROPIUM/ALBUTEROL 0.5-2.5 MG/3 ML AMPUL NEB SCH ×4 (02:33→20:00)
[2018-10-02] MEDS: LEVOFLOXACIN 750 MG/D5W RTU 750 MG/150 ML RTUPB IV SCH (05:16)
[2018-10-02] MEDS: LANSOPRAZOLE 30 MG TAB.RAP.DR PO SCH ×2 (05:16→17:05)
[2018-10-02] MEDS: HEPARIN SOD (PORCINE) 5,000 UNIT/ML 1 ML SYRINGE SUBCUT SCH ×3 (05:19→21:13)
[2018-10-02 05:34] LABS: ABSOLUTE LYMPHOCYTES (AUTO) 1.4 10^3/uL (0.5-4.7); ABSOLUTE MONOCYTES (AUTO) 0.6 10^3/uL (0.1-1.4); ABSOLUTE NEUT (AUTO) 5.7 10^3/uL (1.7-8.2); BASOPHILS % (AUTO) 0.4 % (0-2); EOSINOPHILS % (AUTO) 0.6 % (0-6); HEMATOCRIT 36.1 % (37.9-51.0); HEMOGLOBIN 12.6 g/dL (13.5-17.0); LYMPHOCYTES % (AUTO) 17.6 % (13-45); MEAN CORPUSCULAR HEMOGLOBIN 34.1 pg (27.0-33.4); MEAN CORPUSCULAR VOLUME 98 fl (80-97); MONOCYTES % (AUTO) 7.7 % (3-13); PLATELET COUNT 244 10^3/uL (150-450); RED CELL DISTRIBUTION WIDTH 13.5 % (11.5-14.0); SEGMENTED NEUTROPHILS % (AUTO) 73.7 % (42-78); TOTAL CELLS COUNTED % (AUTO) 100 %; WHITE BLOOD COUNT 7.7 10^3/uL (4.0-10.5)
[2018-10-02 05:59] LABS: ANION GAP 12 (5-19); BLOOD UREA NITROGEN 10 mg/dL (7-20); CALCIUM 9.1 mg/dL (8.4-10.2); CARBON DIOXIDE 26 mmol/L (22-30); CHLORIDE 96 mmol/L (98-107); GLUCOSE 118 mg/dL (75-110); POTASSIUM 4.3 mmol/L (3.6-5.0); SODIUM 134.2 mmol/L (137-145)
[2018-10-02] MEDS: LAMOTRIGINE 100 MG TABLET PO SCH ×3 (08:06→17:04)
[2018-10-02] MEDS: HYDROCODONE/ACETAMINOPHEN 5-325 MG TABLET PO PRN ×2 (08:17→21:12)
[2018-10-02] MEDS: FLUTICASONE NASAL SPRAY 50 MCG/SPRY 120 SPRAY/16 GM NASL SCH ×2 (09:43→21:14)
[2018-10-02] MEDS: MAGNESIUM OXIDE 400 MG TABLET PO SCH (09:44)
[2018-10-02] MEDS: CLONAZEPAM 1 MG TABLET PO SCH (09:44)
[2018-10-02] MEDS: CARBAMAZEPINE 200 MG TABLET PO SCH ×2 (09:44→21:12)
[2018-10-02] MEDS: PREDNISONE 20 MG TABLET PO SCH ×2 (09:46→17:04)
[2018-10-02] MEDS: BUDESONIDE NEB 0.5 MG/2 ML AMPUL NEB SCH (20:00)
[2018-10-02] MEDS: ESCITALOPRAM OXALATE 10 MG TABLET PO SCH (21:12)
--- NOTE | 2018-10-02 22:53 | PDOC PROGRESS REPORT ---
Subjective Progress Note for:: 10/02/18 Subjective:: Breathing is somewhat easier but still requiring oxygen. Reason For Visit: PNEUMONIA Physical Exam Vital Signs: Temp Pulse Resp BP Pulse Ox 98.9 F 72 18 135/70 H 94 10/02/18 19:39 10/02/18 20:00 10/02/18 20:00 10/02/18 19:39 10/02/18 20:00 Pulse Oximeter Continuous Start: 09/30/18 03:52 Freq: RTQ4 Status: Active Protocol: Document 10/02/18 20:00 SFL (Rec: 10/02/18 20:24 SFL [id number]) Pulse Oximetry Assessment Oxygen Saturation (92-100) 94 Oxygen Flow Rate (L/min) 2 Oxygen Delivery Method Nasal Cannula Fraction of Inspired Oxygen (FIO2) 28 Equipment Usage Equipment in Use Continuous Pulse Oximeter 24 Hour Charge Charge Now Continuous SpO2 Machine # 9 Intake & Output 10/01/18 10/02/18 10/03/18 06:59 06:59 06:59 Intake Total 766 1091 150 Balance 766 1091 150 Weight 89.1 kg 87.8 kg General appearance: PRESENT: no acute distress, cooperative, well-developed Head exam: PRESENT: normocephalic Respiratory exam: PRESENT: symmetrical, unlabored, wheezes - Occasional end expiratory wheeze. ABSENT: accessory muscle use, rales, rhonchi, stridor Cardiovascular exam: PRESENT: RRR, +S1, +S2 GI/Abdominal exam: PRESENT: normal bowel sounds, soft. ABSENT: distended, tenderness Rectal exam: PRESENT: deferred Extremities exam: ABSENT: pedal edema Neurological exam: PRESENT: alert, awake, oriented to person, oriented to place, oriented to situation Psychiatric exam: PRESENT: flat affect. ABSENT: agitated, anxious Focused psych exam: ABSENT: restlessness Results Laboratory Results: 10/02/18 05:16 10/02/18 05:16 10/02/18 10/02/18 05:16 05:16 WBC 7.7 RBC 3.70 L Hgb 12.6 L Hct 36.1 L MCV 98 H MCH 34.1 H MCHC 35.0 RDW 13.5 Plt Count 244 Seg Neutrophils % 73.7 Lymphocytes % 17.6 Monocytes % 7.7 Eosinophils % 0.6 Basophils % 0.4 Absolute Neutrophils 5.7 Absolute Lymphocytes 1.4 Absolute Monocytes 0.6 Absolute Eosinophils 0.0 Absolute Basophils 0.0 Sodium 134.2 L Potassium 4.3 Chloride 96 L Carbon Dioxide 26 Anion Gap 12 BUN 10 Creatinine 0.67 Est GFR ( Amer) > 60 Est GFR (Non-Af Amer) > 60 Glucose 118 H Calcium 9.1 Impressions: Chest X-Ray 09/29/18 23:54 IMPRESSION: Pneumonia. copyright 2010 [employer]- All Rights Reserved Chest CT 10/01/18 10:33 IMPRESSION: Diffuse ground-glass attenuation and interlobular septal thickening. Pattern is nonspecific but commonly associated with bacterial pneumonia, cryptogenic organizing pneumonia, ARDS, pulmonary alveolar proteinosis, among others. Assessment & Plan - Diagnosis (1) Pneumonia Qualifiers: Pneumonia type: due to unspecified organism Laterality: bilateral Lung location: unspecified part of lung Qualified Code(s): J18.9 - Pneumonia, unspecified organism Is this a current diagnosis for this admission?: Yes Plan: The patient continues to improve. We will try and wean him from oxygen and possibly discharge tomorrow. They will continue his antibiotic therapy at this time. CT scan did show diffuse inflammation. Sputum Gram stain showed gram- positive cocci. Await final identification and adjust antibiotics if clinically indicated. (2) Obstructive lung disease Qualifiers: COPD type: unspecified COPD Qualified Code(s): J44.9 - Chronic obstructive pulmonary disease, unspecified Is this a current diagnosis for this admission?: Yes Plan: It is possible that the patient has a component of obstructive lung disease. When the pneumonia resolved and the patient recovers he would likely benefit from pulmonary function testing. (3) Seizure disorder Is this a current diagnosis for this admission?: Yes Plan: Continue current medications (4) Depression Qualifiers: Depression Type: unspecified Qualified Code(s): F32.9 - Major depressive disorder, single episode, unspecified Is this a current diagnosis for this admission?: Yes Plan: Continue current medications (5) Gastritis and duodenitis Is this a current diagnosis for this admission?: Yes Plan: Revealed gastritis and duodenitis. The patient should avoid anti-inflammatory medications. Continue proton pump inhibitor therapy. (6) Polypharmacy Is this a current diagnosis for this admission?: Yes Plan: The patient does have a complex medication regimen. His regimen does include schedule II medications. A urine drug screen was performed and the patient did have unconfirmed positive results for barbiturates and methamphetamine. Despite being on daily benzodiazepine therapy the benzodiazepine component of the screen was negative. The set up set the patient yesterday when he was interrogated regarding the positive results. I did spend time with the patient and his and explained that this test was just a screen. They typically would have to send the specimen out for verification and confirmation. With the negative results for benzodiazepines despite his daily benzodiazepine treatment they realized that false-negative's and false positives exist and that I have not made any changes in his medications based on a screening test. - Time Time Spent with patient: 35 or more minutes Medications reviewed and adjusted accordingly: Yes Anticipated discharge: Home
[2018-10-03] MEDS: IPRATROPIUM/ALBUTEROL 0.5-2.5 MG/3 ML AMPUL NEB SCH ×3 (02:16→13:55)
[2018-10-03] MEDS: HEPARIN SOD (PORCINE) 5,000 UNIT/ML 1 ML SYRINGE SUBCUT SCH ×2 (06:09→13:49)
[2018-10-03] MEDS: LANSOPRAZOLE 30 MG TAB.RAP.DR PO SCH (06:09)
[2018-10-03] MEDS: HYDROCODONE/ACETAMINOPHEN 5-325 MG TABLET PO PRN (06:09)
[2018-10-03 06:26] LABS: HEMATOCRIT 36.8 % (37.9-51.0); MEAN CORPUSCULAR HEMOGLOBIN 34.3 pg (27.0-33.4); MEAN CORPUSCULAR HGB CONC 35.3 g/dL (32.0-36.0); MEAN CORPUSCULAR VOLUME 97 fl (80-97); PLATELET COUNT 273 10^3/uL (150-450); RED BLOOD COUNT 3.78 10^6/uL (4.35-5.55); RED CELL DISTRIBUTION WIDTH 13.5 % (11.5-14.0); WHITE BLOOD COUNT 7.3 10^3/uL (4.0-10.5)
[2018-10-03 06:52] LABS: ANION GAP 15 (5-19); BLOOD UREA NITROGEN 11 mg/dL (7-20); CALCIUM 9.2 mg/dL (8.4-10.2); CARBON DIOXIDE 26 mmol/L (22-30); CHLORIDE 94 mmol/L (98-107); GLUCOSE 117 mg/dL (75-110); POTASSIUM 4.7 mmol/L (3.6-5.0); SODIUM 134.8 mmol/L (137-145)
[2018-10-03 07:20] LABS: ABSOLUTE LYMPHOCYTES# (MANUAL) 1.8 10^3/uL (0.5-4.7); ABSOLUTE MONOCYTES # (MANUAL) 0.4 10^3/uL (0.1-1.4); ABSOLUTE NEUTROPHILS# (MANUAL) 5.2 10^3/uL (1.7-8.2); BASOPHILS % (MANUAL) 0 % (0-2); EOSINOPHILS % (MANUAL) 0 % (0-6); LYMPHOCYTES % (MANUAL) 24 % (13-45); MONOCYTES % (MANUAL) 5 % (3-13); SEGMENTED NEUTROPHILS % (MAN) 71 % (42-78); TOTAL CELLS COUNTED 100; TOXIC GRANULATION 1+
[2018-10-03 07:21] LABS: PLATELET COMMENT ADEQUATE; RBC MORPHOLOGY COMMENT NORMO-CYTIC/CHROMIC
[2018-10-03] MEDS: BUDESONIDE NEB 0.5 MG/2 ML AMPUL NEB SCH (07:51)
[2018-10-03] MEDS: FLUTICASONE NASAL SPRAY 50 MCG/SPRY 120 SPRAY/16 GM NASL SCH (09:22)
[2018-10-03] MEDS: CARBAMAZEPINE 200 MG TABLET PO SCH (09:22)
[2018-10-03] MEDS: MAGNESIUM OXIDE 400 MG TABLET PO SCH (09:22)
[2018-10-03] MEDS: CLONAZEPAM 1 MG TABLET PO SCH (09:22)
[2018-10-03] MEDS: LAMOTRIGINE 100 MG TABLET PO SCH ×2 (09:24→12:02)
[2018-10-03] MEDS: PREDNISONE 20 MG TABLET PO SCH (09:24)
[2018-10-03] MEDS ORDERED: LEVOFLOXACIN 750 MG TABLET PO SCH (10:00)
[2018-10-03 12:14] VITALS: BP 133/73
--- NOTE | 2018-10-03 21:30 | PDOC DISCHARGE SUMMARY ---
General - Admit/Disc Date/PCP Admission Date/Primary Care Provider: 09/30/18 04:02 BRENT FOSTER- Discharge Date: 10/03/18 - Patient left AGAINST MEDICAL ADVICE - Discharge Diagnosis (1) Pneumonia Is this a current diagnosis for this admission?: Yes Summary: Unfortunately antibiotics not prescribed as patient left AMA (2) Obstructive lung disease Is this a current diagnosis for this admission?: Yes Summary: Unfortunately new prescriptions not provided as the patient signed out AGAINST MEDICAL ADVICE (3) Seizure disorder Is this a current diagnosis for this admission?: Yes Summary: The patient should return to his previous medication regimen (4) Depression Is this a current diagnosis for this admission?: Yes Summary: The patient should return to his previous medication regimen (5) Gastritis and duodenitis Is this a current diagnosis for this admission?: Yes (6) Polypharmacy Is this a current diagnosis for this admission?: Yes - Additional Information Resuscitation Status: Full Code Home Medications: Acidoph/L.bulg/Bif.b/S.thermop [Bacid Caplet] 1 each PO BID 09/30/18 Albuterol Sulfate [Proair Hfa Inhalation Aerosol 8.5 gm Mdi] 2 puff IH Q6HP PRN 09/30/18 Albuterol Sulfate [Ventolin 0.083% Neb 2.5 mg/3 ml Ampul] 1 vial NEB RTQ6HP PRN 09/30/18 Ascorbic Acid [Vitamin C 500 mg Tablet] 500 mg PO DAILY 09/30/18 Budesonide [Entocort EC] 3 mg PO DAILY 09/30/18 Butalb/Acetaminophen/Caffeine [Fioricet (50-325-40 mg) Tablet] 1 tab PO QIDP PRN 09/30/18 Carbamazepine [Tegretol 200 Mg Tablet] 200 mg PO TID@0800,1200,1700 09/30/18 Cholecalciferol (Vitamin D3) [Vitamin D3 1000 Unit Tablet] 2,000 unit PO DAILY 09/30/18 Clonazepam [Klonopin 1 mg Tablet] 1 mg PO BID 09/30/18 Dexlansoprazole [Dexilant 60 mg Capsule] 60 mg PO Q6AM 09/30/18 Dextroamphetamine/Amphetamine [Adderall 5 mg Tablet] 5 mg PO NOON 09/30/18 Dextroamphetamine/Amphetamine [Adderall 5 mg Tablet] 15 mg PO QAM 09/30/18 Dextroamphetamine/Amphetamine [Adderall Xr 5 mg Capsule] 15 mg PO NOON 09/30/18 Diclofenac Epolamine [Flector] 1 each TP DAILYP PRN 09/30/18 Diclofenac Potassium 50 mg PO QID 09/30/18 Dronabinol [Marinol] 5 mg PO QID 09/30/18 Escitalopram Oxalate [Lexapro] 40 mg PO QHS 09/30/18 Ferrous Sulfate [Feosol 325 mg Tablet] 325 mg PO DAILY 09/30/18 Hydrocodone/Acetaminophen [Burdick 5-325 mg Tablet] 1 tab PO TIDP PRN 09/30/18 Lamotrigine [Lamictal 100 mg Tablet] 100 mg PO TID@0800,1200,1700 09/30/18 Magnesium Oxide [Mag-Ox 400 mg Tablet] 400 mg PO DAILY 09/30/18 Multivitamin [Tab-A-Maikel (Multiple Vitamin) Tablet] 1 tab PO DAILY 09/30/18 Cook Sta-3 Acid Ethyl Esters [Lovaza 1 gm Capsule] 1 gm PO DAILY 09/30/18 History of Present Illness Patient complains of: Increased shortness of breath History of Present Illness: FARIDA CHO is a 47 year old male has a complex past medical history. The patient had 5 days of shortness of breath prior to presenting to the emergency department. He had a non-productive cough but when he developed a fever he presented to the hospital. He was found to have bilateral infiltrates on chest x-ray. Hospital Course Hospital Course: The patient had a difficult hospital course. Due to the results of a urine drug screen there was suspicion of illicit drug use. Please see yesterday's progress note. With antibiotic therapy the patient was slowly improving. The medications for his mental health issues were continued. The patient expressed discontent since I had seen him late into the afternoon. The staff tried to explain that the hospitalist service has been very busy. The patient was frustrated and decided to sign out AGAINST MEDICAL ADVICE. The patient advocate also spoke to the patient to no avail. Physical Exam Vital Signs: Temp Pulse Resp BP Pulse Ox 98.2 F 71 16 133/73 H 96 10/03/18 11:28 10/03/18 14:00 10/03/18 13:58 10/03/18 11:28 10/03/18 13:58 Pulse Oximeter Ambulatory Start: 10/02/18 14:26 Freq: RTDAILY Status: Discharge Protocol: Document 10/03/18 11:25 JDR (Rec: 10/03/18 11:26 JDR [id number]) Exercise Oximetry Treatment Ambulating SpO2 Charge Now Yes Oxygen Delivery Method Room Air Recovery O2 Saturation by Pulse Oximetry 93 Pulse Rate 96 Respiratory Rate 18 Exercise O2 Saturation by Pulse Oximetry 91 Pulse Rate 110 Respiratory Rate 22 Resting O2 Saturation by Pulse Oximetry 94 Pulse Rate 92 Respiratory Rate 18 Oximetry Exercise Interval (min) 10 Exercise Tolerance Good Additional RT Notes Other pt did drop to 89% on RA for about 15 seconds of total walk time. Pulse Oximeter Continuous Start: 09/30/18 03:52 Freq: RTQ4 Status: Discharge Protocol: Document 10/03/18 07:53 JDR (Rec: 10/03/18 08:05 JDR [id number]) Pulse Oximetry Assessment Equipment Usage Equipment Standby Continuous SpO2 Machine # 9 Intake & Output 10/02/18 10/03/18 10/04/18 06:59 06:59 06:59 Intake Total 1091 416 450 Balance 1091 416 450 Weight 87.8 kg 93 kg Additional comments: Unable to perform physical exam as the patient signed out AGAINST MEDICAL ADVICE Results Laboratory Results: 10/03/18 05:26 10/03/18 05:26 10/03/18 10/03/18 05:26 05:26 WBC 7.3 RBC 3.78 L Hgb 13.0 L Hct 36.8 L MCV 97 MCH 34.3 H MCHC 35.3 RDW 13.5 Plt Count 273 Seg Neutrophils % Not Reportable Lymphocytes % Not Reportable Monocytes % Not Reportable Eosinophils % Not Reportable Basophils % Not Reportable Absolute Neutrophils Not Reportable Absolute Lymphocytes Not Reportable Absolute Monocytes Not Reportable Absolute Eosinophils Not Reportable Absolute Basophils Not Reportable Sodium 134.8 L Potassium 4.7 Chloride 94 L Carbon Dioxide 26 Anion Gap 15 BUN 11 Creatinine 0.68 Est GFR ( Amer) > 60 Est GFR (Non-Af Amer) > 60 Glucose 117 H Calcium 9.2 Impressions: Chest X-Ray 09/29/18 23:54 IMPRESSION: Pneumonia. copyright 2011 [employer]- All Rights Reserved Chest CT 10/01/18 10:33 IMPRESSION: Diffuse ground-glass attenuation and interlobular septal thickening. Pattern is nonspecific but commonly associated with bacterial pneumonia, cryptogenic organizing pneumonia, ARDS, pulmonary alveolar proteinosis, among others. Qualifiers - * PATIENT BEING DISCHARGED WITH ANY OF THE FOLLOWING DIAGNOSIS: No Plan Discharge Plan: The patient signed out AGAINST MEDICAL ADVICE
== END 2018-10-03 16:10 | disposition left against medical advice (07) | DRG 194 ==
LOC: ER 23:42 → EH 09-30 04:02 → OBSVTOIN 09-30 04:02 → 4N 09-30 07:00
PROVIDERS: ADMIT Internal Medicine; ATTEND Internal Medicine
DX: J18.9 Pneumonia, unspecified organism (principal); J44.0 Chronic obstructive pulmonary disease with (acute) lower respiratory infection; F43.10 Post-traumatic stress disorder, unspecified; F17.200 Nicotine dependence, unspecified, uncomplicated; G40.909 Epilepsy, unspecified, not intractable, without status epilepticus; K21.9 Gastro-esophageal reflux disease without esophagitis; J44.9 Chronic obstructive pulmonary disease, unspecified; K29.70 Gastritis, unspecified, without bleeding; K29.80 Duodenitis without bleeding; F19.90 Other psychoactive substance use, unspecified, uncomplicated; Z82.49 Family history of ischemic heart disease and other diseases of the circulatory system; Z79.899 Other long term (current) drug therapy
CPT/HCPCS: 36415; 71045; 71250; 80048; 80307; 82803; 85025; 87070; 87205; 87804; 94010; 94640; 94660; 94761; 94762; 94799; 96361; 96374; 99285; J1644; J1885; J1956; J3475; J3490; J7512; J7620

== ENCOUNTER → 2018-10-23 | Day surgery (SDC) | payer OTHER ==
--- NOTE | 2018-10-23 14:37 | Operative Report ---
PREOPERATIVE DIAGNOSIS: Lumbar Spondylosis POSTOPERATIVE DIAGNOSIS: Lumbar Spondylosis PROCEDURE: Radiofrequency Ablation of medial branches - RT L4 L5 / LT L4 L5 DATE OF PROCEDURE: 10/23/2018 ANESTHESIA: local COMPLICATIONS: none CONSENT: A full description of the procedure was provided including benefits as well as possible complications. All questions were answered and informed consent was given and signed. ASA guidelines for fasting were verified prior to sedation. PROCEDURE IN DETAIL The patient was brought into the fluoroscopy suite and positioned into the prone position on the fluoroscopy table and allowed to adjust to a position of comfort. A grounding pad was placed on the RIGHT thigh. The lumbar region was widely prepped with a chloraprep solution, allowed to air dry and draped in standard sterile surgical fashion. Local anesthesia was provided by 1 mL of 1% lidocaine delivered with a 25 g needle. A 17g 75 mm radiofrequency introducer needle was placed to the planned anatomic targets guided with intermittent fluoroscopy with a perpendicular approach to terminally place at the junction of the superior articular process and the transverse process of the Right L5 and the base of the sacral ala on the RIGHT for the L5 medial branch nerve. The stylets were removed and radiofrequency probes with a 4mm active tip were then inserted. Needle tip position of the probes was verified in the AP, oblique, and lateral views. At each site, the medial branch nerve was stimulated at 2 Hz to a maximum 1-2 volts determined to finalize safe needle and electrode placement. The patient was awake and responsive during this portion of the procedure. Each target was anesthetized with 1-2 mL of 2% lidocaine for anesthesia for lesioning and then each target was lesioned at 80 degrees Celsius for 2 minutes and 30 seconds. Tissue impedences were noted to be between 250 and 500 Ohms. Proceeded the same level in same manner on the left. A solution of sensorcaine of depomedrol at each level. Electrodes and needles were then removed and bandages placed over the needle placement sites, the patient then returned to the supine position on a stretcher and transported to the recovery room without hemodynamic, neurologic, or allergic reactions. Fluoroscopic images were printed for hard copy recording and digitally archived. POST PROCEDURE EVALUATION: The patient was comfortable in the recovery room. The patient is aware that pain may worsen before remitting and 4 6 weeks may be required prior to the onset of pain relief. IMPRESSION: 1. Technically successful Bilateral L4 L5 medial branch radiofrequency neurotomy for denervation bilaterally without complication. 2. RTC in [6] weeks. 3. Estimated Blood Loss: [5 cc] 4. Fluoroscopy time: [see nursing record] seconds
== END ==
LOC: RAD 13:44
PROVIDERS: ATTEND Student in an Organized Health Care Education/Training Program
DX: M47.817 Spondylosis without myelopathy or radiculopathy, lumbosacral region (principal)
CPT/HCPCS: 64635; 64636; J3490 ×3; J1020

== ENCOUNTER → 2019-05-08 | Day surgery (SDC) | payer OTHER ==
[~2019-05-08] MED LIST changes: -LIDOCAINE 1% INJ-PF (10 MG/ML) 30 ML SDV ONE
--- NOTE | 2019-05-08 09:27 | Operative Report ---
PREOPERATIVE DIAGNOSIS: Lumbar Spondylosis POSTOPERATIVE DIAGNOSIS: Lumbar Spondylosis PROCEDURE: Radiofrequency Ablation of medial branches - RT L4 L5 / LT L4 L5 DATE OF PROCEDURE: 05/08/2019 ANESTHESIA: Local COMPLICATIONS: None CONSENT: A full description of the procedure was provided including benefits as well as possible complications. All questions were answered and informed consent was given and signed. ASA guidelines for fasting were verified prior to sedation. PROCEDURE IN DETAIL The patient was brought into the fluoroscopy suite and positioned into the prone position on the fluoroscopy table and allowed to adjust to a position of comfort. A grounding pad was placed on the right thigh. The lumbar region was widely prepped with a chloraprep solution, allowed to air dry and draped in standard sterile surgical fashion. Local anesthesia was provided by 1 mL of 1 % lidocaine delivered with a 25 g needle. A 17g 100mm radiofrequency introducer needle was placed to the planned anatomic targets guided with intermittent fluoroscopy with a perpendicular approach to terminally place at the junction of the superior articular process and the transverse process of the bilateral L5 and the base of the sacral ala bilaterally for the L5 medial branch nerves. The stylets were removed and radiofrequency probes with a 4mm active tip were then inserted. Needle tip posi tion of the probes was verified in the AP, oblique, and lateral views. At each site, the medial branch nerve was stimulated at 2 Hz to a maximum 1-2 volts determined to finalize safe needle and electrode placement. The patient was awake and responsive during this portion of the procedure. Each target was anesthetized with 1-2 mL of 2 % lidocaine for anesthesia for lesioning and then each target was lesioned at 80 degrees Celsius for 2 minutes and 30 seconds. Tissue impedences were noted to be between 250 and 500 Ohms. A solution of Depo-Medrol and Sensorcaine was injected at each site. electrodes and needles were then removed and bandages placed over the needle placement sites, the patient then returned to the supine position on a stretcher and transported to the recovery room without hemodynamic, neurologic, or allergic reactions. Fluoroscopic images were printed for hard copy recording and digitally archived. POST PROCEDURE EVALUATION: The patient was comfortable in the recovery room. The patient is aware that pain may worsen before remitting and 4 6 weeks may be required prior to the onset of pain relief. IMPRESSION: 1. Technically successful bilateral L4 L5 medial branch radiofrequency neurotomy for denervation bilaterally without complication. 2. RTC in 6 weeks. 3. Estimated Blood Loss: 2 cc 4. Fluoroscopy time: See nursing record for seconds
== END ==
LOC: RAD 08:26
PROVIDERS: ATTEND Student in an Organized Health Care Education/Training Program
DX: M47.817 Spondylosis without myelopathy or radiculopathy, lumbosacral region (principal)
CPT/HCPCS: 64635; 64636; J3490 ×2; J1030

== ENCOUNTER 2019-05-20 09:46 | Emergency (ER) | payer OTHER ==
[2019-05-20] MEDS ORDERED: KETOROLAC TROMETHAMINE 60 MG/2 ML SDV IM ONE ×2 (10:03→10:26)
--- NOTE | 2019-05-20 10:07 | ER Document Report ---
ED Medical Screen (RME) - General Chief Complaint: Shoulder Pain Stated Complaint: SHOULDER PAIN Time Seen by Provider: 05/20/19 09:52 Primary Care Provider: MARY FRANCISCO MD [Primary Care Provider] - Follow up as needed Notes: Patient is a 48-year-old male who presents to the emergency department with a chief complaint of left shoulder pain. He states that about 48 hours ago he went to get up and started to feel pain from his elbow that then radiated to his left fourth and fifth fingers. He states that it also radiated up to his left shoulder. Patient has a history of rotator cuff surgery 2 to 3 years ago. Patient states that he is not able to hold a coffee cup well and has decreased strength. He was seen by urgent care on and received a dose of Toradol. It helped, but the pain is back again. Exam: Decreased strength to fourth and fifth digits on left hand. I have greeted and performed a rapid initial assessment of this patient. A comprehensive ED assessment and evaluation of the patient, analysis of test results and completion of medical decision making process will be conducted by an additional ED providers. TRAVEL OUTSIDE OF THE [place] IN LAST 30 DAYS: No - Related Data Allergies/Adverse Reactions: No Known Allergies Allergy (Verified 03/23/15 23:04) Past Medical History - Past Medical History Cardiac Medical History: Denies: Hx Coronary Artery Disease, Hx Heart Attack, Hx Hypertension Pulmonary Medical History: Denies: Hx Asthma, Hx Bronchitis, Hx COPD, Hx Pneumonia Neurological Medical History: Reports: Hx Seizures - LAST X 1 WEEK AGO. Denies: Hx Cerebrovascular Accident Renal/ Medical History: Denies: Hx Peritoneal Dialysis Musculoskeltal Medical History: Denies Hx Arthritis Psychiatric Medical History: Reports: Hx Depression - Immunizations Hx Diphtheria, Pertussis, Tetanus Vaccination: Yes History of Influenza Vaccine for 05/2017 - 10/2017 Season: Yes Influenza Administration Date for 05/2017 - 10/2017 Season: 05/10/17 Doctor's Discharge - Discharge Referrals: MARY FRANCISCO MD [Primary Care Provider] - Follow up as needed
[2019-05-20] MEDS ORDERED: DEXAMETHASONE SOD PHOS INJ 10 MG/1 ML VIAL IM ONE (10:26)
--- NOTE | 2019-05-20 10:27 | ER Document Report ---
HPI - HPI Time Seen by Provider: 05/20/19 09:52 Pain Level: 5 Notes: Patient is a 48-year-old male with a history of left shoulder rotator cuff surgery 2 to 3 years ago who presents complaining of left posterior elbow pain for the past 2 days with numbness and tingling going into his fourth and fifth fingers. Patient states that prior to the start of symptoms he was leaning on his left elbow on the floor when he was playing with his kids. He also laid on the posterior sides of his upper arms on the floor as well. Patient does not recall specific injury, but did push himself up with his arms initially and started noticing soreness to his back left triceps area near the elbow. Patient states that he did have numbness and tingling into his left hand that localized to his fourth and fifth digits since then. Patient states that he is able to move his elbow and shoulder without difficulty otherwise. Denies drug allergies. He has not noticed any bruising or swelling. No history of DVT. Denies any headache, fever, URI, sore throat, chest pain, palpitations, syncope, cough, shortness of breath, wheeze, dyspnea, abdominal pain, nausea/vomiting/diarrhea, urinary retention, dysuria, hematuria, loss of control of bowel or bladder, saddle anesthesia, muscle paralysis, or rash. - ROS Systems Reviewed and Negative: Yes All other systems reviewed and negative - REPRODUCTIVE Reproductive: DENIES: : Past Medical History - Social History Smoking Status: Current Every Day Smoker Chew tobacco use (# tins/day): No Frequency of alcohol use: Rare Drug Abuse: None Family History: Hypertension Patient has suicidal ideation: No Patient has homicidal ideation: No - Past Medical History Cardiac Medical History: Denies: Hx Coronary Artery Disease, Hx Heart Attack, Hx Hypertension Pulmonary Medical History: Denies: Hx Asthma, Hx Bronchitis, Hx COPD, Hx Pneumonia Neurological Medical History: Reports: Hx Seizures - LAST X 1 WEEK AGO. Denies: Hx Cerebrovascular Accident Renal/ Medical History: Denies: Hx Peritoneal Dialysis Musculoskeletal Medical History: Denies Hx Arthritis Psychiatric Medical History: Reports: Hx Depression - Immunizations Hx Diphtheria, Pertussis, Tetanus Vaccination: Yes Hx Pneumococcal Vaccination: 08/05/15 Vertical Provider Document - CONSTITUTIONAL Agree With Documented VS: Yes Notes: PHYSICAL EXAMINATION: GENERAL: Well-appearing, well-nourished and in no acute distress. NECK: Normal range of motion, supple without lymphadenopathy. Non-tender. Spurling negative. No rigidity/meningismus. LUNGS: Breath sounds clear to auscultation bilaterally and equal. No wheezes rales or rhonchi. HEART: Regular rate and rhythm without murmurs, rubs, gallops. Musculoskeletal: Lt shoulder: FROM to passive/active. Strength 5+/5 due to pain. Neg impingement test. Neg speed test. No crepitus. No erythema or warmth. No deformity or ecchymosis. RC intact 5+/5 strength. Left elbow: FROM. Strength 5+/5. No ecchymosis, erythema, swelling, effusion. + mild tenderness to the distal triceps area w/o any bulging noted. + tinel to the cubital tunnel. No wrist/hand drop noted. Distal ends of radial/ulnar nerves wnl with finger/hand testing. Neg tinel/phalen at the wrist. 2+ pulses. Mild dec sensation 4th-5th fingers to palp. Academic Support Director strength 4+/5. Extremities: No cyanosis, clubbing, or edema b/l. Peripheral pulses 2+. Capillary refill less than 3 seconds. NEUROLOGICAL: Normal speech, normal gait. PSYCH: Normal mood, normal affect. SKIN: Warm, Dry, normal turgor, no rashes or lesions noted. - INFECTION CONTROL TRAVEL OUTSIDE OF THE [place] IN LAST 30 DAYS: No Course - Re-evaluation Re-evalutation: 05/20/19 10:26 Patient is an afebrile, well-hydrated, 48-year-old male who presents to the ED with left elbow pain which I suspect to be a strain vs sprain with cubital tunnel syndrome. Vitals are acceptable without any significant tachycardia, tachypnea, or hypoxia. PE is otherwise unremarkable for any neurovascular compromise, obvious tendon/ligament rupture, obvious fracture/dislocation, septic joint. Pt given decadron/toradol. He has his own sling. Patient is nontoxic-appearing. No other labs or imaging warranted at this time based on H&P. Conservative measures otherwise for symptoms. Recheck with your PCM in 3- 5 days. Schedule consult with orthopedics. Return to the ED with any worsening/concerning symptoms otherwise as reviewed in discharge. Patient is in agreement. - Vital Signs Vital signs: Temp Pulse Resp BP Pulse Ox 98.3 F 73 18 150/81 H 94 05/20/19 09:55 05/20/19 09:55 05/20/19 09:55 05/20/19 09:55 05/20/19 09:55 Discharge - Discharge Clinical Impression: Left elbow pain Condition: Stable Disposition: HOME, SELF-CARE Additional Instructions: Rest, Ice, Compression, Elevation Tylenol/ibuprofen as needed Light stretches daily Strength exercises as able Moist heat and massage may help F/u with your PCP in 3-5 days for a recheck Consider consult(s) with Orthopedics/physical therapy for ongoing/worsening symptoms Return to the ED with any worsening symptoms and/or development of fever, headache, chest pain, palpitations, syncope, shortness of breath, trouble breathing, abdominal pain, n/v/d, muscle weakness/paralysis, numbness/tingling, swelling, redness, or other worsening symptoms that are concerning to you. Prescriptions: Naproxen 500 mg PO BID #14 tablet Forms: Elevated Blood Pressure Referrals: MARY FRANCISCO MD [ACTIVE STAFF] - Follow up as needed JENNIFER HAYES JR, DO [ACTIVE PROVISIONAL STAFF] - Follow up in 3-5 days
[2019-05-20 11:07] VITALS: BP 157/90
== END 2019-05-20 11:08 | disposition home or self-care (01) ==
LOC: ER 09:46
DX: M25.522 Pain in left elbow (principal); Z98.890 Other specified postprocedural states; X50.9XXA Other and unspecified overexertion or strenuous movements or postures, initial encounter; F17.200 Nicotine dependence, unspecified, uncomplicated
CPT/HCPCS: 99283; 96374; 96375; J1885; J1100

== ENCOUNTER 2019-07-08 12:56 | Inpatient (IN) | payer OTHER ==
[2019-07-08] MEDS ORDERED: ALBUTEROL SULFATE 0.083% NEB 2.5 MG/3 ML AMPUL NEB ONE ×3 (13:28→14:21)
[2019-07-08] MEDS ORDERED: IPRATROPIUM/ALBUTEROL 0.5-2.5 MG/3 ML AMPUL NEB ONE ×3 (13:28→16:42)
[2019-07-08] MEDS ORDERED: MAGNESIUM SULFATE/D5W 1 GM/100 ML RTUPB IV ONE (13:28)
[2019-07-08] MEDS ORDERED: METHYLPREDNISOLONE INJ 125 MG/2 ML SDV IV ONE (13:29)
[2019-07-08] MEDS ORDERED: METHYLPREDNISOLONE INJ 125 MG/2 ML SDV ONE (13:30)
[2019-07-08] MEDS: MAGNESIUM SULFATE/D5W 1 GM/100 ML RTUPB IV SCH ×2 (13:38→13:53)
--- NOTE | 2019-07-08 13:53 | RADIOLOGY REPORT (SQ) ---
EXAM DESCRIPTION: CHEST SINGLE VIEW COMPLETED DATE/TIME: 07/08/2019 1:43 pm REASON FOR STUDY: Cough, wheeze, diaphoretic, hypoxic COMPARISON: 09/30/2018 EXAM PARAMETERS: NUMBER OF VIEWS: One view. TECHNIQUE: Single frontal radiographic view of the chest acquired. RADIATION DOSE: NA LIMITATIONS: None. FINDINGS: LUNGS AND PLEURA: Mild patchy lingular opacities. No dense consolidation. No pleural eff usion or pneumothorax. MEDIASTINUM AND HILAR STRUCTURES: No masses. Contour normal. HEART AND VASCULAR STRUCTURES: Heart normal in size. Normal vasculature. BONES: No acute findings. HARDWARE: None in the chest. OTHER: No other significant finding. IMPRESSION: Minimal ill-defined lingular opacities suggestive of pneumonia. No pleural effusion. TECHNICAL DOCUMENTATION: JOB ID: [id number] [employer] All Rights Reserved Reading location - IP/workstation name: [email or web address]
[2019-07-08 13:55] LABS: VENOUS BLOOD BASE EXCESS 2.5 mmol/L; VENOUS BLOOD HCO3 27.6 mmol/L (20-32); VENOUS BLOOD PCO2 44.3 mmHg (35-63); VENOUS BLOOD PH 7.41 (7.30-7.42)
[2019-07-08 14:10] LABS: ABSOLUTE EOSINOPHILS # (AUTO) 0.1 10^3/uL (0.0-0.6); ABSOLUTE MONOCYTES (AUTO) 0.7 10^3/uL (0.1-1.4); ABSOLUTE NEUT (AUTO) 10.1 10^3/uL (1.7-8.2); BASOPHILS % (AUTO) 0.2 % (0-2); EOSINOPHILS % (AUTO) 0.9 % (0-6); HEMATOCRIT 39.2 % (37.9-51.0); HEMOGLOBIN 13.7 g/dL (13.5-17.0); LYMPHOCYTES % (AUTO) 8.6 % (13-45); MEAN CORPUSCULAR HEMOGLOBIN 34.6 pg (27.0-33.4); MEAN CORPUSCULAR HGB CONC 34.8 g/dL (32.0-36.0); MEAN CORPUSCULAR VOLUME 99 fl (80-97); MONOCYTES % (AUTO) 6.2 % (3-13); PLATELET COUNT 288 10^3/uL (150-450); RED BLOOD COUNT 3.94 10^6/uL (4.35-5.55); RED CELL DISTRIBUTION WIDTH 13.8 % (11.5-14.0); SEGMENTED NEUTROPHILS % (AUTO) 84.1 % (42-78); TOTAL CELLS COUNTED % (AUTO) 100 %
--- NOTE | 2019-07-08 14:20 | ER Document Report ---
Entered by HERVE XIE SCRIBE 07/08/19 1328 Acting as scribe for:SHEILA VILLA MD ED Respiratory Problem - General Chief Complaint: Shortness Of Breath Stated Complaint: DIFFICULTY BREATHING Primary Care Provider: ALAN MEADOWS DO [Primary Care Provider] - Follow up as needed Mode of Arrival: Ambulatory Information source: Patient Notes: 48 year old male that presents to the emergency department today with complaints of shortness of breath. Patient states the shortness of breath began last night and became much worse prior to arrival. Patient had a room air oxygen saturation of 84% on arrival here. Patient has also had a cough. at bedside states that his presentation today is similar to when he was diagnosed with pneumonia in September. TRAVEL OUTSIDE OF THE [place] IN LAST 30 DAYS: No - Related Data Allergies/Adverse Reactions: No Known Allergies Allergy (Verified 05/20/19 10:03) Past Medical History - General Information source: Patient - Social History Smoking Status: Current Every Day Smoker Cigarette use (# per day): Yes Frequency of alcohol use: None Drug Abuse: None Lives with: Family Family History: Reviewed & Not Pertinent, Hypertension Neurological Medical History: Reports: Hx Seizures Psychiatric Medical History: Reports: Hx Depression - Immunizations Hx Diphtheria, Pertussis, Tetanus Vaccination: Yes Hx Pneumococcal Vaccination: 08/05/15 Review of Systems - Review of Systems Constitutional: No symptoms reported EENT: No symptoms reported Cardiovascular: No symptoms reported Respiratory: See HPI, Cough, Short of breath Gastrointestinal: No symptoms reported Genitourinary: No symptoms reported Male Genitourinary: No symptoms reported Musculoskeletal: No symptoms reported Skin: No symptoms reported Hematologic/Lymphatic: No symptoms reported Neurological/Psychological: No symptoms reported -: Yes All other systems reviewed and negative Physical Exam - Vital signs Vitals: Temp Pulse Resp BP Pulse Ox 98.5 F 71 24 H 135/72 H 84 L 07/08/19 13:15 07/08/19 13:15 07/08/19 13:15 07/08/19 13:15 07/08/19 13:15 - Notes Notes: Physical Exam: General: Alert, appears short of breath. HEENT: Normocephalic. Atraumatic. PERRL. Extraocular movements intact. Oropharynx clear. Neck: Supple. Non-tender. Respiratory: Hypoxic. Retracting. Prolonged expiratory wheezing with forced cough. Tachypneic. Cardiovascular: Regular rate and rhythm. Abdominal: Normal Inspection. Non-tender. No distension. Normal Bowel Sounds. Back: No gross abnormalities. Extremities: Moves all four extremities. Upper extremities: Normal inspection. Normal ROM. Lower extremities: Normal inspection. No edema. Normal ROM. Neurological: Normal cognition. AAOx4. Normal speech. Psychological: Flat affect. Normal Mood. Skin: Warm. Diaphoretic. Course - Re-evaluation Re-evalutation: 07/08/19 15:43 On a nonrebreather, the patient's oxygen saturation only came up to 90% after magnesium IV and breathing treatments. Patient was placed on BiPAP 40% FiO2 and his O2 saturation is now 98%, and he states his breathing does feel much better. - Vital Signs Vital signs: Temp Pulse Resp BP Pulse Ox 98.1 F 71 19 132/70 H 95 07/08/19 13:21 07/08/19 13:15 07/08/19 15:24 07/08/19 15:24 07/08/19 15:24 - Laboratory Result Diagrams: 07/08/19 13:36 07/08/19 13:36 Laboratory results interpreted by me: 07/08/19 07/08/19 13:36 13:36 WBC 12.0 H RBC 3.94 L MCV 99 H MCH 34.6 H Lymph % (Auto) 8.6 L Absolute Neuts (auto) 10.1 H Seg Neutrophils % 84.1 H Sodium 135.8 L Calcium 7.8 L - Diagnostic Test Radiology reviewed: Image reviewed, Reports reviewed - Chest x-ray shows mild patchy lingular opacities. CTA chest shows patchy bilateral airspace disease consistent with edema or pneumonia no pulmonary emboli. - EKG Interpretation by Ar EKG shows normal: Sinus rhythm, [place], Intervals, QRS Complexes, ST-T Waves Rate: Normal - 67 Rhythm: NSR P Waves: LAE - Consults Amber Nogueira NP Time consulted: 16:35 Consulted provider: will come to ER Critical Care Note - Critical Care Note Total time excluding time spent on procedures (mins): 45 Discharge - Discharge Clinical Impression: Hypoxemia Pneumonia Qualifiers: Pneumonia type: due to unspecified organism Laterality: bilateral Lung location: upper lobe of lung Qualified Code(s): J18.9 - Pneumonia, unspecified organism Obstructive lung disease Qualifiers: COPD type: COPD with acute exacerbation Qualified Code(s): J44.1 - Chronic obstructive pulmonary disease with (acute) exacerbation Condition: Good Disposition: ADMITTED INPATIENT Admitting Provider: Onime (Hospitalist) Unit Admitted: Telemetry Referrals: ALAN MEADOWS DO [Primary Care Provider] - Follow up as needed Scribe Attestation: 07/08/19 15:41 I personally performed the services described in the documentation, reviewed and edited the documentation which was dictated to the scribe in my presence, and it accurately records my words and actions. I personally performed the services described in the documentation, reviewed and edited the documentation which was dictated to the scribe in my presence, and it accurately records my words and actions.
[2019-07-08 14:22] LABS: ALBUMIN 3.7 g/dL (3.5-5.0); ALKALINE PHOSPHATASE 79 U/L (38-126); ANION GAP 9 (5-19); ASPARTATE AMINO TRANSFERASE 29 U/L (17-59); BILIRUBIN,DIRECT 0.2 mg/dL (0.0-0.4); BILIRUBIN,TOTAL 0.6 mg/dL (0.2-1.3); BLOOD UREA NITROGEN 15 mg/dL (7-20); CALCIUM 7.8 mg/dL (8.4-10.2); CARBON DIOXIDE 24 mmol/L (22-30); CHLORIDE 103 mmol/L (98-107); CREATINE KINASE 74 U/L (55-170); GLUCOSE 92 mg/dL (75-110); POTASSIUM 3.6 mmol/L (3.6-5.0); TOTAL PROTEIN 6.3 g/dL (6.3-8.2)
--- NOTE | 2019-07-08 14:40 | EKG REPORT ---
SEVERITY:- NORMAL ECG - SINUS RHYTHM : Confirmed by: Hina Santana MD 08-Jul-2019 14:39:37
--- NOTE | 2019-07-08 15:34 | RADIOLOGY REPORT (SQ) ---
EXAM DESCRIPTION: CTA CHEST COMPLETED DATE/TIME: 07/08/2019 3:21 pm REASON FOR STUDY: Hypoxemia COMPARISON: Chest x-ray done earlier the same day. TECHNIQUE: CT scan of the chest performed using helical scanning technique with dynamic intravenous contrast injection. Images reviewed with lung, soft tissue and bone windows. Reconstructed coronal and sagittal MPR images reviewed. Additional 3 dimensional post-processing performed to develop Maximal Intensity Projection images (DE P). All images stored on PACS. All CT scanners at this facility use dose modulation, iterative reconstruction, and/or weight based d osing when appropriate to reduce radiation dose to as low as reasonably achievable (ALARA). [facility]: Dose Right [facility]: CareDose [facility]: Dose Right [facility]: Teradose 4D [facility]: [employer] CONTRAST TYPE AND DOSE: contrast/concentration: Isovue 350.00 mg/ml; Total Contrast Delivered: 68.0 ml; Total Saline Delivered: 72.0 ml Contrast bolus adequate for pulmonary arteries and aorta. RENAL FUNCTION: BUN 15, creatinine 0.83 RADIATION DOSE: CT Rad equipment meets quality standard of care and radiation dose reduction [employer] ues were employed. CTDIvol: 18.6 - 19.8 mGy. DLP: 676 mGy-cm. . LIMITATIONS: None. FINDINGS: LUNGS AND PLEURA: There is patchy bilateral upper lobe as well as right basilar pneumonia. There is bibasilar atelectasis left greater than right. No effusions. No pneumothorax. AORTA AND GREAT VESSELS: No aneurysm. Contrast bolus not optimized for the aorta. HEART: No pericardial effusion. No significant coronary artery calcifications. PULMONARY ARTERIES: No emboli visualized in the main pulmonary arteries or the segmental branches. HILAR AND MEDIASTINAL STRUCTURES: Mildly prominent right hilar lymph nodes are noted most likely reac tive. HARDWARE: None in the chest. UPPER ABDOMEN: No significant findings. Limited exam. THYROID AND OTHER SOFT TISSUES: No masses. No adenopathy. BONES: No acute or significant finding. 3D MIPS: Confirm above findings. OTHER: No other significant finding. IMPRESSION: Patchy bilateral airspace disease consistent with edema or pneumonia. No pulmonary embo li. COMMENT: Quality ID # [id number]: Final reports with documentation of one or more dose reduction techniques (e.g., Automated exposure control, adjustment of the mA and/or kV according to patient size, use of iterative reconstruction technique) TECHNICAL DOCUMENTATION: JOB ID: [id number] [employer]- All Rights Reserved Reading location - IP/workstation name: [email or web address]
[2019-07-08] MEDS ORDERED: LEVOFLOXACIN 750 MG/D5W RTU 750 MG/150 ML RTUPB IV ONE (16:09)
[2019-07-08] MEDS ORDERED: GUAIFENESIN SYRP 200 MG/10 ML UDC PO PRN (17:11)
[2019-07-08] MEDS ORDERED: ALBUTEROL SULFATE 0.083% NEB 2.5 MG/3 ML AMPUL NEB PRN (17:11)
[2019-07-08] MEDS ORDERED: INFLUENZA QUAD (6MOS+) 2019-20 VAC 0.5 ML SYR IM ONE (18:38)
[2019-07-08] MEDS: ACETAMINOPHEN 325 MG TABLET PO PRN (20:34)
--- NOTE | 2019-07-08 21:18 | PDOC H&P ---
History of Present Illness Admission Date/PCP: 07/08/19 16:46 ALAN MEADOWS DO Patient complains of: shortness of breath History of Present Illness: FARIDA CHO is a 48 year old male with a past medical history of COPD, pneumonia requiring hospital admission, TBI, epilepsy, PTSD, depression, GERD, and substance abuse who presented to the emergency department today with complaint of 2 days of rapidly worsening shortness of breath and cough. Evaluation in the emergency department demonstrated tachypnea (RR 26), hypoxia on room air84%, leukocytosis (WBCs 12), unremarkable chemistry with normal troponin and proBNP. EKG revealed sinus rhythm. Chest x-ray was suggestive of pneumonia, follow-up CTA confirmed patchy bilateral airspace disease consistent with pneumonia. The patient was provided supplemental oxygen, BiPAP support, nebulizer treatments, started on Levaquin and referred to the hospitalist service for admission and management of the above-stated complaints and findings. Past Medical History Cardiac Medical History: Denies: Coronary Artery Disease, Myocardial Infarction, Hypertension Pulmonary Medical History: Reports: Pneumonia, Respiratory Failure Denies: Chronic Obstructive Pulmonary Disease (COPD) EENT Medical History: Reports: None Neurological Medical History: Reports: Seizures, Other - TBI Endocrine Medical History: Reports: None Renal/ Medical History: Reports: None Malignancy Medical History: Reports: None GI Medical History: Reports: Gastroesophageal Reflux Disease Musculoskeltal Medical History: Denies: Arthritis Psychiatric Medical History: Reports: Depression, Tobacco Dependency Traumatic Medical History: Reports: None Hematology: Denies: Anemia Infectious Medical History: Reports: None Past Surgical History Past Surgical History: Reports: None Social History Information Source: Patient Lives with: Family Smoking Status: Current Every Day Smoker Cigarettes Packs Per Day: 1 Electronic Cigarette use?: No Frequency of Alcohol Use: None Hx Recreational Drug Use: No Drugs: None Hx Prescription Drug Abuse: No - Advance Directive Resuscitation Status: Full Code Surrogate healthcare decision maker:: The patient's . Family History Family History: Reviewed & Not Pertinent, Hypertension Parental Family History Reviewed: Yes Children Family History Reviewed: Yes Sibling(s) Family History Reviewed.: Yes Medication/Allergy Home Medications: Albuterol Sulfate [Proair Respiclick] 2 puff IH Q4HP PRN 07/08/19 Ascorbic Acid [Vitamin C] 1,000 mg PO DAILY 07/08/19 Budesonide [Entocort EC] 3 mg PO DAILY 07/08/19 Budesonide [Entocort EC] 3 mg PO DAILYP PRN 07/08/19 Butalb/Acetaminophen/Caffeine [Fioricet (50-325-40 mg) Tablet] 1 tab PO BID 07/08/19 Carbamazepine [Tegretol] 200 mg PO Q8 07/08/19 Cholecalciferol (Vitamin D3) [Vitamin D3 1000 Unit Tablet] 2,000 unit PO DAILY 07/08/19 Clindamycin Phosphate [Clindamax Lotion] 1 applic TP BIDP PRN 07/08/19 Clonazepam [Klonopin 1 mg Tablet] 1 mg PO BID 07/08/19 Cyclobenzaprine HCl [Flexeril 10 mg Tablet] 10 mg PO TIDP PRN 07/08/19 Dexlansoprazole [Dexilant 60 mg Capsule] 60 mg PO Q6AM 07/08/19 Dextroamphetamine/Amphetamine [Adderall 5 mg Tablet] 15 mg PO NOON 07/08/19 Dextroamphetamine/Amphetamine [Adderall Xr 5 mg Capsule] 5 mg PO NOON 07/08/19 Dextroamphetamine/Amphetamine [Adderall Xr 5 mg Capsule] 15 mg PO QAM 07/08/19 Diclofenac Epolamine [Flector] 1 each TP Q12HP PRN 07/08/19 Diclofenac Potassium 50 mg PO Q6HP PRN 07/08/19 Dronabinol [Marinol 2.5 mg Capsule] 5 mg PO ACHS 07/08/19 Escitalopram Oxalate [Lexapro] 40 mg PO QHS 07/08/19 Ferrous Sulfate [Feosol 325 mg Tablet] 325 mg PO QHS 07/08/19 Lactobacillus Acidophilus [Probiotic] 1 each PO BID 07/08/19 Lamotrigine [Lamictal 100 mg Tablet] 100 mg PO NOON 07/08/19 Lamotrigine [Lamictal 100 mg Tablet] 200 mg PO TID@0800,1700,2000 07/08/19 Magnesium Oxide [Mag-Ox 400 mg Tablet] 800 mg PO QHS 07/08/19 Multivitamin [Tab-A-Maikel (Multiple Vitamin) Tablet] 1 tab PO DAILY 07/08/19 Amelia-3/Dha/Epa/Fish Oil [Amelia 3 500 Softgel] 1 each PO DAILY 07/08/19 Allergies/Adverse Reactions: No Known Allergies Allergy (Verified 05/20/19 10:03) Review of Systems Constitutional: PRESENT: chills, fatigue. ABSENT: fever(s), headache(s), weight gain, weight loss Eyes: ABSENT: visual disturbances Ears: ABSENT: hearing changes Cardiovascular: ABSENT: chest pain, dyspnea on exertion, edema, orthropnea, palpitations Respiratory: PRESENT: cough, dyspnea. ABSENT: hemoptysis Gastrointestinal: ABSENT: abdominal pain, constipation, diarrhea, hematemesis, hematochezia, nausea, vomiting Genitourinary: ABSENT: dysuria, hematuria Musculoskeletal: ABSENT: joint swelling Integumentary: ABSENT: rash, wounds Neurological: ABSENT: abnormal gait, abnormal speech, confusion, dizziness, focal weakness, syncope Psychiatric: ABSENT: anxiety, depression, homidical ideation, suicidal ideation Endocrine: ABSENT: cold intolerance, heat intolerance, polydipsia, polyuria Hematologic/Lymphatic: ABSENT: easy bleeding, easy bruising Physical Exam Vital Signs: Temp Pulse Resp BP Pulse Ox 98.3 F 75 24 H 129/77 H 100 07/08/19 18:10 07/08/19 18:10 07/08/19 18:30 07/08/19 18:10 07/08/19 18:30 Intake & Output 07/07/19 07/08/19 07/09/19 06:59 06:59 06:59 Intake Total 275 Output Total 0 Balance 275 Weight 91.9 kg General appearance: PRESENT: no acute distress, mild distress, well-developed, well-nourished Head exam: PRESENT: atraumatic, normocephalic Eye exam: PRESENT: conjunctiva pink, EOMI, PERRLA. ABSENT: scleral icterus Ear exam: PRESENT: normal external ear exam Mouth exam: PRESENT: moist, tongue midline Respiratory exam: PRESENT: clear to auscultation meliza, symmetrical, tachypnea, unlabored, wheezes, other - BiPAP with supplemental oxygen. ABSENT: rales, rhonchi Cardiovascular exam: PRESENT: RRR, +S1, +S2. ABSENT: diastolic murmur, rubs, systolic murmur Pulses: PRESENT: normal dorsalis pedis pul Vascular exam: PRESENT: normal capillary refill GI/Abdominal exam: PRESENT: normal bowel sounds, soft. ABSENT: distended, guarding, mass, organolmegaly, rebound, tenderness Rectal exam: PRESENT: deferred Extremities exam: PRESENT: full ROM. ABSENT: calf tenderness, clubbing, pedal edema Neurological exam: PRESENT: alert, awake, oriented to person, oriented to place, oriented to time, oriented to situation, CN II-XII grossly intact, other - Fatigue. ABSENT: motor sensory deficit Psychiatric exam: PRESENT: appropriate affect, normal mood. ABSENT: homicidal ideation, suicidal ideation Skin exam: PRESENT: dry, intact, warm. ABSENT: cyanosis, rash Results Laboratory Results: 07/08/19 13:36 07/08/19 13:36 07/08/19 07/08/19 07/08/19 13:36 13:36 13:36 WBC 12.0 H RBC 3.94 L Hgb 13.7 Hct 39.2 MCV 99 H MCH 34.6 H MCHC 34.8 RDW 13.8 Plt Count 288 Seg Neutrophils % 84.1 H VBG pH VBG pCO2 VBG HCO3 VBG Base Excess Sodium 135.8 L Potassium 3.6 Chloride 103 Carbon Dioxide 24 Anion Gap 9 BUN 15 Creatinine 0.83 Est GFR ( Amer) > 60 Glucose 92 Lactic Acid 0.8 Calcium 7.8 L Total Bilirubin 0.6 AST 29 Alkaline Phosphatase 79 Total Protein 6.3 Albumin 3.7 07/08/19 13:36 WBC RBC Hgb Hct MCV MCH MCHC RDW Plt Count Seg Neutrophils % VBG pH 7.41 VBG pCO2 44.3 VBG HCO3 27.6 VBG Base Excess 2.5 Sodium Potassium Chloride Carbon Dioxide Anion Gap BUN Creatinine Est GFR ( Amer) Glucose Lactic Acid Calcium Total Bilirubin AST Alkaline Phosphatase Total Protein Albumin 07/08/19 07/08/19 07/08/19 13:36 13:36 13:36 Creatine Kinase 74 Troponin I < 0.012 NT-Pro-B Natriuret Pep 55 Impressions: Chest X-Ray 07/08/19 13:30 IMPRESSION: Minimal ill-defined lingular opacities suggestive of pneumonia. No pleural effusion. Chest/Abdomen CTA 07/08/19 14:20 IMPRESSION: Patchy bilateral airspace disease consistent with edema or pneumonia. No pulmonary emboli. Assessment and Plan - Diagnosis (1) Community acquired pneumonia Qualifiers: Laterality: unspecified laterality Qualified Code(s): J18.9 - Pneumonia, unspecified organism Is this a current diagnosis for this admission?: Yes Plan: Chest x-ray and chest CT confirmed patchy bilateral pneumonia. Sputum and blood cultures are pending. Patient is admitted to the medical floor on continuous cardiac telemetry. Continue supplemental oxygen and BiPAP support as needed to maintain saturations greater than 90%. Scheduled and as needed nebulizer treatments. Scheduled Mucinex and Robitussin as needed. (2) Acute respiratory failure with hypoxia Is this a current diagnosis for this admission?: Yes Plan: Secondary to #1. Evaluation management as above. (3) Seizure disorder Is this a current diagnosis for this admission?: Yes Plan: We will continue home dose Tegretol, Lamictal Fall and seizure precaution (4) PTSD (post-traumatic stress disorder) Is this a current diagnosis for this admission?: Yes Plan: Continue home dose of Klonopin, Adderall, Lexapro (5) Tobacco abuse Is this a current diagnosis for this admission?: Yes Plan: Smoking cessation is encouraged. Nicotine replacement therapies are provided. - Time Time Spent with patient: 25-34 minutes Smoking Cessation Education: 3 to 10 minutes Medications reviewed and adjusted accordingly: Yes Anticipated discharge: Home Within: within 72 hours - Inpatient Certification Based on my medical assessment, after consideration of the patient's comorbidities, presenting symptoms, or acuity I expect that the services needed warrant INPATIENT care.: Yes I certify that my determination is in accordance with my understanding of Medicare's requirements for reasonable and necessary INPATIENT services [42 CFR 412.3e].: Yes Medical Necessity: Need Close Monitoring Due to Risk of Patient Decompensation, Need For IV Fluids, Need For Continuous Telemetry Monitoring, Need for Nebulizer Therapy and Monitoring of Response, Need for IV Antibiotics, Risk of Complication if Not Cared For in Hospital, Risk of Diagnosis Which Will Require Inpatient Eval/Care/Monitoring
[2019-07-08] MEDS: GUAIFENESIN 600 MG TABLET.SA PO SCH (21:24)
[2019-07-08] MEDS: FAMOTIDINE INJ/PF 20 MG/2 ML SDV IV SCH (21:24)
[2019-07-08] MEDS: HEPARIN SOD (PORCINE) 5,000 UNIT/ML 1 ML VIAL SUBCUT SCH (21:26)
[2019-07-08] MEDS: IPRATROPIUM/ALBUTEROL 0.5-2.5 MG/3 ML AMPUL NEB SCH (21:57)
[2019-07-08] MEDS ORDERED: (PENDING PHARMACY ID) (Escitalopram Oxalate [Lexapro] 40 MG) PO SCH (22:00)
[2019-07-08] MEDS: ESCITALOPRAM OXALATE 10 MG TABLET PO SCH (22:12)
[2019-07-08] MEDS: CLONAZEPAM 1 MG TABLET PO SCH (22:12)
[2019-07-08] MEDS: CARBAMAZEPINE 200 MG TABLET PO SCH (22:41)
[2019-07-09] MEDS: IPRATROPIUM/ALBUTEROL 0.5-2.5 MG/3 ML AMPUL NEB SCH ×4 (02:23→20:49)
[2019-07-09] MEDS: CARBAMAZEPINE 200 MG TABLET PO SCH ×3 (06:09→22:28)
[2019-07-09] MEDS: HEPARIN SOD (PORCINE) 5,000 UNIT/ML 1 ML VIAL SUBCUT SCH ×3 (06:10→22:23)
[2019-07-09 07:02] LABS: HEMATOCRIT 37.8 % (37.9-51.0); HEMOGLOBIN 13.3 g/dL (13.5-17.0); MEAN CORPUSCULAR HEMOGLOBIN 34.7 pg (27.0-33.4); MEAN CORPUSCULAR HGB CONC 35.1 g/dL (32.0-36.0); MEAN CORPUSCULAR VOLUME 99 fl (80-97); PLATELET COUNT 284 10^3/uL (150-450); RED BLOOD COUNT 3.81 10^6/uL (4.35-5.55); RED CELL DISTRIBUTION WIDTH 13.9 % (11.5-14.0); WHITE BLOOD COUNT 13.7 10^3/uL (4.0-10.5)
[2019-07-09 07:21] LABS: ANION GAP 12 (5-19); BLOOD UREA NITROGEN 16 mg/dL (7-20); CALCIUM 8.7 mg/dL (8.4-10.2); CARBON DIOXIDE 25 mmol/L (22-30); CHLORIDE 100 mmol/L (98-107); GLUCOSE 127 mg/dL (75-110); POTASSIUM 4.5 mmol/L (3.6-5.0)
[2019-07-09] MEDS ORDERED: AMPHETAMINE PO SCH ×3 (08:00→12:00)
[2019-07-09] MEDS ORDERED: DEXTROAMPHETAMINE PO SCH ×3 (08:00→12:00)
[2019-07-09] MEDS: LAMOTRIGINE 100 MG TABLET PO SCH ×4 (08:41→20:09)
[2019-07-09] MEDS: GUAIFENESIN 600 MG TABLET.SA PO SCH ×2 (10:02→22:27)
[2019-07-09] MEDS: FAMOTIDINE INJ/PF 20 MG/2 ML SDV IV SCH ×2 (10:02→22:27)
[2019-07-09] MEDS: CLONAZEPAM 1 MG TABLET PO SCH ×2 (10:02→22:23)
[2019-07-09] MEDS: NORMAL SALINE 1000 ML 1,000 ML IV PRN (10:08)
[2019-07-09] MEDS: ACETAMINOPHEN 325 MG TABLET PO PRN ×2 (12:06→22:31)
--- NOTE | 2019-07-09 12:14 | PDOC PROGRESS REPORT ---
Subjective Progress Note for:: 07/09/19 Reason For Visit: PNEUMONIA 07/09/2019 She was admitted yesterday through the emergency room for pneumonia. Patient had a 2-day history of shortness of breath and cough Physical Exam Vital Signs: Temp Pulse Resp BP Pulse Ox 97.8 F 79 28 H 130/62 H 97 07/09/19 08:55 07/09/19 08:55 07/09/19 08:55 07/09/19 08:55 07/09/19 08:55 Intake & Output 07/08/19 07/09/19 07/10/19 06:59 06:59 06:59 Intake Total 275 Output Total 0 Balance 275 Weight 97.3 kg General appearance: PRESENT: no acute distress, other - At the time of my visit this morning patient is on his BiPAP and resting comfortably. Patient does not do well on room air at this point Respiratory exam: PRESENT: rhonchi Cardiovascular exam: PRESENT: RRR. ABSENT: diastolic murmur, rubs, systolic murmur Neurological exam: PRESENT: alert, awake, oriented to person, oriented to place, oriented to time, oriented to situation, CN II-XII grossly intact. ABSENT: motor sensory deficit Psychiatric exam: PRESENT: appropriate affect, normal mood, other - Patient's does all of the talking since he is on a BiPAP support. ABSENT: homicidal ideation, suicidal ideation Results Laboratory Results: 07/09/19 06:25 07/09/19 06:25 07/08/19 07/08/19 07/08/19 13:36 13:36 13:36 WBC 12.0 H RBC 3.94 L Hgb 13.7 Hct 39.2 MCV 99 H MCH 34.6 H MCHC 34.8 RDW 13.8 Plt Count 288 Seg Neutrophils % 84.1 H VBG pH VBG pCO2 VBG HCO3 VBG Base Excess Sodium 135.8 L Potassium 3.6 Chloride 103 Carbon Dioxide 24 Anion Gap 9 BUN 15 Creatinine 0.83 Est GFR ( Amer) > 60 Glucose 92 Lactic Acid 0.8 Calcium 7.8 L Total Bilirubin 0.6 AST 29 Alkaline Phosphatase 79 Total Protein 6.3 Albumin 3.7 07/08/19 07/09/19 07/09/19 13:36 06:25 06:25 WBC 13.7 H RBC 3.81 L Hgb 13.3 L Hct 37.8 L MCV 99 H MCH 34.7 H MCHC 35.1 RDW 13.9 Plt Count 284 Seg Neutrophils % VBG pH 7.41 VBG pCO2 44.3 VBG HCO3 27.6 VBG Base Excess 2.5 Sodium 136.5 L Potassium 4.5 Chloride 100 Carbon Dioxide 25 Anion Gap 12 BUN 16 Creatinine 0.72 Est GFR ( Amer) > 60 Glucose 127 H Lactic Acid Calcium 8.7 Total Bilirubin AST Alkaline Phosphatase Total Protein Albumin 07/08/19 07/08/19 07/08/19 13:36 13:36 13:36 Creatine Kinase 74 Troponin I < 0.012 NT-Pro-B Natriuret Pep 55 Impressions: Chest X-Ray 07/08/19 13:30 IMPRESSION: Minimal ill-defined lingular opacities suggestive of pneumonia. No pleural effusion. Chest/Abdomen CTA 07/08/19 14:20 IMPRESSION: Patchy bilateral airspace disease consistent with edema or pneumonia. No pulmonary emboli. Assessment and Plan - Diagnosis (1) Community acquired pneumonia Qualifiers: Laterality: unspecified laterality Qualified Code(s): J18.9 - Pneumonia, unspecified organism Is this a current diagnosis for this admission?: Yes (2) Hypoxemia Is this a current diagnosis for this admission?: Yes (3) PTSD (post-traumatic stress disorder) Is this a current diagnosis for this admission?: Yes (4) Pneumonia Qualifiers: Pneumonia type: due to unspecified organism Laterality: bilateral Lung location: upper lobe of lung Qualified Code(s): J18.9 - Pneumonia, unspecified organism Is this a current diagnosis for this admission?: Yes - Plan Summary Summary: 07/09/2019 According to the patient uses a CPAP machine at home It has been involved in pain management now for at least 4 years with [facility] Patient is currently on Levaquin IV Continue pulmonary toiletry and IV antibiotics Wound care to superficial wounds of the left lower extremity - Time Time Spent with patient: 25-34 minutes
[2019-07-09] MEDS: BACITRACIN ZINC OINTMENT 15 GM TP SCH ×2 (15:00→22:24)
[2019-07-09] MEDS: LEVOFLOXACIN 750 MG/D5W RTU 750 MG/150 ML RTUPB IV SCH (17:40)
[2019-07-09] MEDS: ESCITALOPRAM OXALATE 10 MG TABLET PO SCH (22:27)
[2019-07-10] MEDS: IPRATROPIUM/ALBUTEROL 0.5-2.5 MG/3 ML AMPUL NEB SCH ×4 (02:30→20:07)
[2019-07-10] MEDS: CARBAMAZEPINE 200 MG TABLET PO SCH ×3 (07:25→22:07)
[2019-07-10] MEDS: HEPARIN SOD (PORCINE) 5,000 UNIT/ML 1 ML VIAL SUBCUT SCH ×3 (07:26→22:07)
[2019-07-10] MEDS: LAMOTRIGINE 100 MG TABLET PO SCH ×4 (08:19→22:06)
[2019-07-10] MEDS: NORMAL SALINE 1000 ML 1,000 ML IV PRN (08:27)
--- NOTE | 2019-07-10 10:35 | RADIOLOGY REPORT (SQ) ---
EXAM DESCRIPTION: CHEST SINGLE VIEW COMPLETED DATE/TIME: 07/10/2019 10:26 am REASON FOR STUDY: pneumonia COMPARISON: 07/08/2019 NUMBER OF VIEWS: One view. TECHNIQUE: Single frontal radiographic view of the chest acquired. LIMITATIONS: None. FINDINGS: LUNGS AND PLEURA: Since prior study the patient has developed extensive bilateral airspace disease most marked in the lung periphery. There is a focal area of consolidation in the medial asp ect of the left upper lobe. Probable small bilateral pleural effusions. MEDIASTINUM AND HILAR STRUCTURES: No masses. Contour normal. HEART AND VASCULAR STRUCTURES: Heart normal in size. Normal vasculature. BONES: No acute findings. HARDWARE: None in the chest. OTHER: No other significant finding. IMPRESSION: Interval development of extensive bilateral airspace disease most marked in the peripher y of the lung hudson. There is focal consolidation in the medial aspect of the left upper lobe. TECHNICAL DOCUMENTATION: JOB ID: [id number] [employer]- All Rights Reserved Reading location - IP/workstation name: [email or web address]
[2019-07-10] MEDS: CLONAZEPAM 1 MG TABLET PO SCH ×2 (10:49→22:07)
[2019-07-10] MEDS: GUAIFENESIN 600 MG TABLET.SA PO SCH ×2 (10:49→22:06)
[2019-07-10] MEDS: FAMOTIDINE INJ/PF 20 MG/2 ML SDV IV SCH ×2 (10:50→22:07)
[2019-07-10] MEDS: BACITRACIN ZINC OINTMENT 15 GM TP SCH ×2 (10:58→22:19)
--- NOTE | 2019-07-10 12:08 | PDOC PROGRESS REPORT ---
Subjective Progress Note for:: 07/10/19 Reason For Visit: PNEUMONIA 07/10/2019 Patient was admitted to the hospital days ago for community-acquired pneumonia Day 2 of Levaquin IV Will add Rocephin as well Physical Exam Vital Signs: Temp Pulse Resp BP Pulse Ox 99.7 F 83 28 H 123/68 96 07/10/19 00:23 07/10/19 08:29 07/10/19 08:29 07/10/19 00:23 07/10/19 08:29 Intake & Output 07/09/19 07/10/19 07/11/19 06:59 06:59 06:59 Intake Total 275 1650 Output Total 0 1475 Balance 275 175 Weight 97.3 kg 97.3 kg General appearance: PRESENT: mild distress, other - Patient continues to require BiPAP, as he feels short of breath when on nasal cannula Respiratory exam: PRESENT: rhonchi Cardiovascular exam: PRESENT: RRR. ABSENT: diastolic murmur, rubs, systolic murmur Neurological exam: PRESENT: alert, awake, oriented to person, oriented to place, oriented to time, oriented to situation, CN II-XII grossly intact. ABSENT: motor sensory deficit Psychiatric exam: PRESENT: anxious Results Laboratory Results: 07/09/19 06:25 07/09/19 06:25 07/08/19 07/08/19 07/08/19 13:36 13:36 13:36 Creatine Kinase 74 Troponin I < 0.012 NT-Pro-B Natriuret Pep 55 Impressions: Chest/Abdomen CTA 07/08/19 14:20 IMPRESSION: Patchy bilateral airspace disease consistent with edema or pneumonia. No pulmonary emboli. Chest X-Ray 07/10/19 00:00 IMPRESSION: Interval development of extensive bilateral airspace disease most marked in the periphery of the lung hudson. There is focal consolidation in the medial aspect of the left upper lobe. Assessment and Plan - Diagnosis (1) Community acquired pneumonia Qualifiers: Laterality: unspecified laterality Qualified Code(s): J18.9 - Pneumonia, unspecified organism Is this a current diagnosis for this admission?: Yes (2) Hypoxemia Is this a current diagnosis for this admission?: Yes (3) PTSD (post-traumatic stress disorder) Is this a current diagnosis for this admission?: Yes (4) Pneumonia Qualifiers: Pneumonia type: due to unspecified organism Laterality: bilateral Lung location: upper lobe of lung Qualified Code(s): J18.9 - Pneumonia, unspecified organism Is this a current diagnosis for this admission?: Yes - Plan Summary Summary: 07/09/2019 According to the patient uses a CPAP machine at home It has been involved in pain management now for at least 4 years with [facility] Patient is currently on Levaquin IV Continue pulmonary toiletry and IV antibiotics Wound care to superficial wounds of the left lower extremity 07/10/2019 Patient's pneumonia may be a little worse on today's portable chest x-ray. Patient continues to require BiPAP, O2 sat is between 96 and 100% on FiO2 of 40% . Respiration rates are in the upper 30s White count remains basically normal Will add Rocephin to his Levaquin - Time Time Spent with patient: 25-34 minutes
[2019-07-10] MEDS: CEFTRIAXONE 1 GM/D5W RTU 1 GM/50 ML RTUPB IV SCH (14:04)
[2019-07-10] MEDS: LEVOFLOXACIN 750 MG/D5W RTU 750 MG/150 ML RTUPB IV SCH (17:09)
[2019-07-10] MEDS: ESCITALOPRAM OXALATE 10 MG TABLET PO SCH (22:06)
[2019-07-11] MEDS: IPRATROPIUM/ALBUTEROL 0.5-2.5 MG/3 ML AMPUL NEB SCH ×4 (02:03→20:51)
[2019-07-11] MEDS: HEPARIN SOD (PORCINE) 5,000 UNIT/ML 1 ML VIAL SUBCUT SCH ×3 (05:57→21:35)
[2019-07-11] MEDS: CARBAMAZEPINE 200 MG TABLET PO SCH ×3 (05:57→21:35)
[2019-07-11] MEDS: NORMAL SALINE 1000 ML 1,000 ML IV PRN (08:10)
[2019-07-11] MEDS: LAMOTRIGINE 100 MG TABLET PO SCH ×4 (08:14→19:34)
[2019-07-11] MEDS ORDERED: METHYLPREDNISOLONE INJ 125 MG/2 ML SDV IV ONE (08:30)
[2019-07-11] MEDS: BACITRACIN ZINC OINTMENT 15 GM TP SCH ×2 (10:11→21:34)
[2019-07-11] MEDS: CLONAZEPAM 1 MG TABLET PO SCH ×2 (10:12→21:35)
[2019-07-11] MEDS: GUAIFENESIN 600 MG TABLET.SA PO SCH ×2 (10:13→21:35)
[2019-07-11] MEDS: FAMOTIDINE 20 MG TABLET PO SCH ×2 (10:13→21:35)
[2019-07-11] MEDS: CEFTRIAXONE 1 GM/D5W RTU 1 GM/50 ML RTUPB IV SCH (10:14)
--- NOTE | 2019-07-11 13:00 | PDOC PROGRESS REPORT ---
Subjective Progress Note for:: 07/11/19 Reason For Visit: PNEUMONIA 07/11/2019 Patient was admitted for pneumonia, hypoxia, PTSD, sleep apnea Physical Exam Vital Signs: Temp Pulse Resp BP Pulse Ox 97.4 F 77 33 H 125/63 98 07/11/19 07:38 07/11/19 10:52 07/11/19 10:52 07/11/19 10:52 07/11/19 10:52 Intake & Output 07/10/19 07/11/19 07/12/19 06:59 06:59 06:59 Intake Total 1650 2077 200 Output Total 1475 1550 Balance 175 527 200 Weight 97.3 kg 93.9 kg General appearance: PRESENT: mild distress Respiratory exam: PRESENT: rhonchi, wheezes Cardiovascular exam: PRESENT: RRR. ABSENT: diastolic murmur, rubs, systolic murmur Neurological exam: PRESENT: alert, awake, oriented to person, oriented to place, oriented to time, oriented to situation, CN II-XII grossly intact. ABSENT: motor sensory deficit Psychiatric exam: PRESENT: appropriate affect, normal mood. ABSENT: homicidal ideation, suicidal ideation Results Laboratory Results: 07/09/19 06:25 07/09/19 06:25 07/08/19 07/08/19 07/08/19 13:36 13:36 13:36 Creatine Kinase 74 Troponin I < 0.012 NT-Pro-B Natriuret Pep 55 Impressions: Chest/Abdomen CTA 07/08/19 14:20 IMPRESSION: Patchy bilateral airspace disease consistent with edema or p neumonia. No pulmonary emboli. Chest X-Ray 07/10/19 00:00 IMPRESSION: Interval development of extensive bilateral airspace disease most marked in the periphery of the lung hudson. There is focal consolidation in the medial aspect of the left upper lobe. Assessment and Plan - Diagnosis (1) Community acquired pneumonia Qualifiers: Laterality: unspecified laterality Qualified Code(s): J18.9 - Pneumonia, unspecified organism Is this a current diagnosis for this admission?: Yes (2) Hypoxemia Is this a current diagnosis for this admission?: Yes (3) PTSD (post-traumatic stress disorder) Is this a current diagnosis for this admission?: Yes (4) Pneumonia Qualifiers: Pneumonia type: due to unspecified organism Laterality: bilateral Lung location: upper lobe of lung Qualified Code(s): J18.9 - Pneumonia, unspecified organism Is this a current diagnosis for this admission?: Yes - Plan Summary Summary: 07/09/2019 According to the patient uses a CPAP machine at home It has been involved in pain management now for at least 4 years with [facility] Patient is currently on Levaquin IV Continue pulmonary toiletry and IV antibiotics Wound care to superficial wounds of the left lower extremity 07/10/2019 Patient's pneumonia may be a little worse on today's portable chest x-ray. Patient continues to require BiPAP, O2 sat is between 96 and 100% on FiO2 of 40%. Respiration rates are in the upper 30s White count remains basically normal Will add Rocephin to his Levaquin 07/11/2019 She remains on BiPAP and auscultation of his lungs reveal scattered rhonchi with wheezes. He is maintaining his sats 96 200% on FiO2 of 45 Have added Solu-Medrol loading dose of 125 mg and then 40 mg IV every 8 hours He still is not running fever temperature 97.4 blood pressure stable 135/71 respirations are anywhere from 20-38 I am watching the patient closely to prevent any further deterioration of his pulmonary functions or trending to ARDS I have spoken to respiratory therapy about him - Time Time Spent with patient: 25-34 minutes
[2019-07-11] MEDS ORDERED: METHYLPREDNISOLONE INJ 40 MG/1 ML SDV IV SCH (14:00)
[2019-07-11] MEDS: LEVOFLOXACIN 750 MG/D5W RTU 750 MG/150 ML RTUPB IV SCH (17:14)
[2019-07-11] MEDS: METHYLPREDNISOLONE INJ 40 MG/1 ML SDV IV SCH ×2 (19:32→23:41)
[2019-07-11] MEDS: ESCITALOPRAM OXALATE 10 MG TABLET PO SCH (21:35)
[2019-07-12] MEDS: IPRATROPIUM/ALBUTEROL 0.5-2.5 MG/3 ML AMPUL NEB SCH ×4 (02:40→20:11)
[2019-07-12] MEDS: HEPARIN SOD (PORCINE) 5,000 UNIT/ML 1 ML VIAL SUBCUT SCH ×3 (06:46→22:10)
[2019-07-12] MEDS: METHYLPREDNISOLONE INJ 40 MG/1 ML SDV IV SCH ×4 (06:47→23:33)
[2019-07-12] MEDS: CARBAMAZEPINE 200 MG TABLET PO SCH ×3 (06:47→22:10)
[2019-07-12] MEDS: NORMAL SALINE 1000 ML 1,000 ML IV PRN (07:28)
[2019-07-12 07:29] LABS: ARTERIAL BLOOD BASE EXCESS 2.6 mmol/L; ARTERIAL BLOOD H2CO3 1.23 mmol/L (1.05-1.35); ARTERIAL BLOOD O2 SATURATION 96.7 % (94-98); ARTERIAL BLOOD PCO2 40.9 mmHg (35-45); ARTERIAL BLOOD PH 7.44 (7.35-7.45); ARTERIAL BLOOD PO2 84.8 mmHg (80-100); ARTERIAL BLOOD TOTAL CO2 28.2 mmol/L (23-27)
[2019-07-12] MEDS: LAMOTRIGINE 100 MG TABLET PO SCH ×4 (07:29→20:39)
[2019-07-12 07:30] LABS: ARTERIAL BLOOD FIO2 35%
--- NOTE | 2019-07-12 08:45 | RADIOLOGY REPORT (SQ) ---
EXAM DESCRIPTION: CHEST SINGLE VIEW COMPLETED DATE/TIME: 07/12/2019 8:27 am REASON FOR STUDY: ARDS COMPARISON: AP view of the chest from 07/10/2019 EXAM PARAMETERS: NUMBER OF VIEWS: One view. TECHNIQUE: Single frontal radiographic view of the chest acquired. RADIATION DOSE: NA LIMITATIONS: None. FINDINGS: LUNGS AND PLEURA: The patchy parenchymal opacities described on the prior radiograph are d ecreased compared to the prior radiograph. There is no pneumothorax or pleural effusion. MEDIASTINUM AND HILAR STRUCTURES: Stable mediastinal and hilar contours. HEART AND VASCULAR STRUCTURES: Stable cardiac silhouette. BONES: No acute findings. HARDWARE: None in the chest. OTHER: No other finding. IMPRESSION: Decreased patchy bilateral parenchymal opacities. TECHNICAL DOCUMENTATION: JOB ID: [id number] [employer]- All Rights Reserved Reading location - IP/workstation name: [email or web address]
[2019-07-12] MEDS: CLONAZEPAM 1 MG TABLET PO SCH ×2 (09:52→22:10)
[2019-07-12] MEDS: FAMOTIDINE 20 MG TABLET PO SCH ×2 (09:52→22:11)
[2019-07-12] MEDS: GUAIFENESIN 600 MG TABLET.SA PO SCH ×2 (09:52→22:11)
[2019-07-12] MEDS: CEFTRIAXONE 1 GM/D5W RTU 1 GM/50 ML RTUPB IV SCH (09:54)
[2019-07-12] MEDS: BACITRACIN ZINC OINTMENT 15 GM TP SCH ×2 (09:58→22:11)
--- NOTE | 2019-07-12 13:29 | PDOC PROGRESS REPORT ---
Subjective Progress Note for:: 07/12/19 Reason For Visit: PNEUMONIA 07/12/2019 Patient was admitted 5 days ago for bilateral pneumonia. Patient has been using BiPAP almost extensively Physical Exam Vital Signs: Temp Pulse Resp BP Pulse Ox 97.4 F 66 23 H 129/67 H 100 07/12/19 12:00 07/12/19 12:00 07/12/19 12:00 07/12/19 12:00 07/12/19 12:00 Intake & Output 07/11/19 07/12/19 07/13/19 06:59 06:59 06:59 Intake Total 2077 2189 170 Output Total 1550 1125 Balance 527 1064 170 Weight 93.9 kg 93.8 kg General appearance: PRESENT: mild distress Respiratory exam: PRESENT: rhonchi, wheezes, other - Patient is actually on nasal cannula today and speaking in full sentences Cardiovascular exam: PRESENT: RRR. ABSENT: diastolic murmur, rubs, systolic murmur Neurological exam: PRESENT: alert, awake, oriented to person, oriented to place, oriented to time, oriented to situation, CN II-XII grossly intact. ABSENT: mo tor sensory deficit Psychiatric exam: PRESENT: appropriate affect, normal mood, other - Patient seems less anxious. ABSENT: homicidal ideation, suicidal ideation Results Laboratory Results: 07/09/19 06:25 07/09/19 06:25 07/12/19 07:03 Carbonic Acid 1.23 HCO3/H2CO3 Ratio 21:1 ABG pH 7.44 ABG pCO2 40.9 ABG pO2 84.8 ABG HCO3 27.0 H ABG O2 Saturation 96.7 ABG Base Excess 2.6 FiO2 35% 07/08/19 07/08/19 07/08/19 13:36 13:36 13:36 Creatine Kinase 74 Troponin I < 0.012 NT-Pro-B Natriuret Pep 55 Impressions: Chest/Abdomen CTA 07/08/19 14:20 IMPRESSION: Patchy bilateral airspace disease consistent with edema or pneumonia. No pulmonary emboli. Chest X-Ray 07/12/19 07:00 IMPRESSION: Decreased patchy bilateral parenchymal opacities. Assessment and Plan - Diagnosis (1) Community acquired pneumonia Qualifiers: Laterality: unspecified laterality Qualified Code(s): J18.9 - Pneumonia, unspecified organism Is this a current diagnosis for this admission?: Yes (2) Hypoxemia Is this a current diagnosis for this admission?: Yes (3) PTSD (post-traumatic stress disorder) Is this a current diagnosis for this admission?: Yes (4) Pneumonia Qualifiers: Pneumonia type: due to unspecified organism Laterality: bilateral Lung location: upper lobe of lung Qualified Code(s): J18.9 - Pneumonia, unspecified organism Is this a current diagnosis for this admission?: Yes - Plan Summary Summary: 07/09/2019 According to the patient uses a CPAP machine at home It has been involved in pain management now for at least 4 years with [facility] Patient is currently on Levaquin IV Continue pulmonary toiletry and IV antibiotics Wound care to superficial wounds of the left lower extremity 07/10/2019 Patient's pneumonia may be a little worse on today's portable chest x-ray. Patient continues to require BiPAP, O2 sat is between 96 and 100% on FiO2 of 40%. Respiration rates are in the upper 30s White count remains basically normal Will add Rocephin to his Levaquin 07/11/2019 he remains on BiPAP and auscultation of his lungs reveal scattered rhonchi with wheezes. He is maintaining his sats 96 200% on FiO2 of 45 Have added Solu-Medrol loading dose of 125 mg and then 40 mg IV every 8 hours He still is not running fever temperature 97.4 blood pressure stable 135/71 respirations are anywhere from 20-38 I am watching the patient closely to prevent any further deterioration of his pulmonary functions or trending to ARDS I have spoken to respiratory therapy about him 07/12/2019 Patient's vital signs are significantly better today temperature 97.4 pulse is 66, blood pressure 129/67, duration rate is down to 23 Patient's portable chest x-ray from this morning is significantly improved from previous studies White count still slightly high but stable Blood gas this morning shows pH 7.44 PCO2 40 PO2 84.8 bicarb of 27 Chemistry panel is normal We will continue at this dose of steroids 40 mg IV every 6 hours of the 24 hours and then taper back Continue IV antibiotics Talk to the patient and his for a long time this morning - Time Time Spent with patient: 35 or more minutes
[2019-07-12] MEDS: LEVOFLOXACIN 750 MG/D5W RTU 750 MG/150 ML RTUPB IV SCH (17:18)
[2019-07-12] MEDS: ESCITALOPRAM OXALATE 10 MG TABLET PO SCH (22:10)
[2019-07-13] MEDS: IPRATROPIUM/ALBUTEROL 0.5-2.5 MG/3 ML AMPUL NEB SCH ×4 (02:11→20:14)
[2019-07-13] MEDS: CARBAMAZEPINE 200 MG TABLET PO SCH ×3 (05:48→21:55)
[2019-07-13] MEDS: HEPARIN SOD (PORCINE) 5,000 UNIT/ML 1 ML VIAL SUBCUT SCH ×3 (05:48→21:55)
[2019-07-13] MEDS: METHYLPREDNISOLONE INJ 40 MG/1 ML SDV IV SCH ×3 (05:48→21:55)
[2019-07-13] MEDS: NORMAL SALINE 1000 ML 1,000 ML IV PRN ×2 (05:48→21:56)
[2019-07-13] MEDS: LAMOTRIGINE 100 MG TABLET PO SCH ×5 (08:17→21:55)
[2019-07-13 09:05] LABS: HEMATOCRIT 33.1 % (37.9-51.0); HEMOGLOBIN 11.5 g/dL (13.5-17.0); MEAN CORPUSCULAR HEMOGLOBIN 34.5 pg (27.0-33.4); MEAN CORPUSCULAR HGB CONC 34.8 g/dL (32.0-36.0); MEAN CORPUSCULAR VOLUME 99 fl (80-97); PLATELET COUNT 336 10^3/uL (150-450); RED BLOOD COUNT 3.34 10^6/uL (4.35-5.55); RED CELL DISTRIBUTION WIDTH 14.1 % (11.5-14.0); WHITE BLOOD COUNT 10.3 10^3/uL (4.0-10.5)
[2019-07-13 09:33] LABS: ABSOLUTE LYMPHOCYTES# (MANUAL) 0.8 10^3/uL (0.5-4.7); ABSOLUTE MONOCYTES # (MANUAL) 0.2 10^3/uL (0.1-1.4); BAND NEUTROPHILS % (MANUAL) 1 % (3-5); BASOPHILS % (MANUAL) 0 % (0-2); EOSINOPHILS % (MANUAL) 0 % (0-6); LYMPHOCYTES % (MANUAL) 7 % (13-45); MONOCYTES % (MANUAL) 2 % (3-13); SEGMENTED NEUTROPHILS % (MAN) 89 % (42-78); TOTAL CELLS COUNTED 100
[2019-07-13 09:35] LABS: ANISOCYTOSIS SLIGHT; PLATELET COMMENT ADEQUATE; WBC MORPHOLOGY COMMENT S
[2019-07-13 09:37] LABS: ANION GAP 11 (5-19); BLOOD UREA NITROGEN 12 mg/dL (7-20); CALCIUM 8.9 mg/dL (8.4-10.2); CARBON DIOXIDE 31 mmol/L (22-30); CHLORIDE 92 mmol/L (98-107); GLUCOSE 159 mg/dL (75-110); POTASSIUM 4.6 mmol/L (3.6-5.0)
--- NOTE | 2019-07-13 10:16 | PDOC PROGRESS REPORT ---
Subjective Progress Note for:: 07/13/19 Reason For Visit: PNEUMONIA 07/13/2019 Patient currently being seen for bilateral pneumonia, respiratory distress Physical Exam Vital Signs: Temp Pulse Resp BP Pulse Ox 97.8 F 65 24 H 149/77 H 94 07/13/19 08:00 07/13/19 08:12 07/13/19 08:12 07/13/19 08:00 07/13/19 08:12 Intake & Output 07/12/19 07/13/19 07/14/19 06:59 06:59 06:59 Intake Total 2189 2280 Output Total 1125 1600 Balance 1064 680 Weight 93.8 kg 94.8 kg General appearance: PRESENT: mild distress Respiratory exam: PRESENT: rhonchi, wheezes, other - Patient sitting up in a chair with nasal cannula instead of BiPAP Talking in full sentences Cardiovascular exam: PRESENT: RRR. ABSENT: diastolic murmur, rubs, systolic murmur Neurological exam: PRESENT: alert, awake, oriented to person, oriented to place, oriented to time, oriented to situation, CN II-XII grossly intact. ABSENT: motor sensory deficit Psychiatric exam: PRESENT: depressed, other - Patient depressed about his c urrent situation and health Results Laboratory Results: 07/13/19 08:45 07/13/19 08:45 07/13/19 07/13/19 08:45 08:45 WBC 10.3 RBC 3.34 L Hgb 11.5 L Hct 33.1 L MCV 99 H MCH 34.5 H MCHC 34.8 RDW 14.1 H Plt Count 336 Seg Neutrophils % Not Reportable Sodium 134.1 L Potassium 4.6 Chloride 92 L Carbon Dioxide 31 H Anion Gap 11 BUN 12 Creatinine 0.65 Est GFR ( Amer) > 60 Glucose 159 H Calcium 8.9 07/08/19 07/08/19 07/08/19 13:36 13:36 13:36 Creatine Kinase 74 Troponin I < 0.012 NT-Pro-B Natriuret Pep 55 Impressions: Chest/Abdomen CTA 07/08/19 14:20 IMPRESSION: Patchy bilateral airspace disease consistent with edema or pneumonia. No pulmonary emboli. Chest X-Ray 07/12/19 07:00 IMPRESSION: Decreased patchy bilateral parenchymal opacities. Assessment and Plan - Diagnosis (1) Community acquired pneumonia Qualifiers: Laterality: unspecified laterality Qualified Code(s): J18.9 - Pneumonia, unspecified organism Is this a current diagnosis for this admission?: Yes (2) Hypoxemia Is this a current diagnosis for this admission?: Yes (3) PTSD (post-traumatic stress disorder) Is this a current diagnosis for this admission?: Yes (4) Pneumonia Qualifiers: Pneumonia type: due to unspecified organism Laterality: bilateral Lung location: upper lobe of lung Qualified Code(s): J18.9 - Pneumonia, unspecified organism Is this a current diagnosis for this admission?: Yes - Plan Summary Summary: 07/09/2019 According to the patient uses a CPAP machine at home It has been involved in pain management now for at least 4 years with [facility] Patient is currently on Levaquin IV Continue pulmonary toiletry and IV antibiotics Wound care to superficial wounds of the left lower extremity 07/10/2019 Patient's pneumonia may be a little worse on today's portable chest x-ray. Patient continues to require BiPAP, O2 sat is between 96 and 100% on FiO2 of 40%. Respiration rates are in the upper 30s White count remains basically normal Will add Rocephin to his Levaquin 07/11/2019 he remains on BiPAP and auscultation of his lungs reveal scattered rhonchi with wheezes. He is maintaining his sats 96 200% on FiO2 of 45 Have added Solu-Medrol loading dose of 125 mg and then 40 mg IV every 8 hours He still is not running fever temperature 97.4 blood pressure stable 135/71 respirations are anywhere from 20-38 I am watching the patient closely to prevent any further deterioration of his pulmonary functions or trending to ARDS I have spoken to respiratory therapy about him 07/12/2019 Patient's vital signs are significantly better today temperature 97.4 pulse is 66, blood pressure 129/67, duration rate is down to 23 Patient's portable chest x-ray from this morning is significantly improved from previous studies White count still slightly high but stable Blood gas this morning shows pH 7.44 PCO2 40 PO2 84.8 bicarb of 27 Chemistry panel is normal We will continue at this dose of steroids 40 mg IV every 6 hours of the 24 hours and then taper back Continue IV antibiotics Talk to the patient and his for a long time this morning Patient was seen by the client services coordinator last night at my request 07/13/2019 Patient's vital signs are very stable his respirations are now down to between 14 and 22. Maintaining his sats between 97 and 100% either on nasal cannula or BiPAP Labs are pending from today Lungs sound much clearer Will decrease steroids to every 8 hours, otherwise continue IV antibiotics Diagnosis #1 currently his pneumonia #2 is resolving pneumonitis - Time Time Spent with patient: 25-34 minutes
[2019-07-13] MEDS: GUAIFENESIN 600 MG TABLET.SA PO SCH ×2 (10:31→21:55)
[2019-07-13] MEDS: FAMOTIDINE 20 MG TABLET PO SCH ×2 (10:31→21:55)
[2019-07-13] MEDS: CLONAZEPAM 1 MG TABLET PO SCH ×2 (10:31→21:55)
[2019-07-13] MEDS: CEFTRIAXONE 1 GM/D5W RTU 1 GM/50 ML RTUPB IV SCH (10:32)
[2019-07-13] MEDS: BACITRACIN ZINC OINTMENT 15 GM TP SCH ×2 (10:42→21:54)
[2019-07-13] MEDS: LEVOFLOXACIN 750 MG/D5W RTU 750 MG/150 ML RTUPB IV SCH (18:17)
[2019-07-13] MEDS: ESCITALOPRAM OXALATE 10 MG TABLET PO SCH (21:55)
[2019-07-14] MEDS: IPRATROPIUM/ALBUTEROL 0.5-2.5 MG/3 ML AMPUL NEB SCH ×4 (02:19→19:54)
[2019-07-14] MEDS: METHYLPREDNISOLONE INJ 40 MG/1 ML SDV IV SCH ×3 (06:37→21:27)
[2019-07-14] MEDS: CARBAMAZEPINE 200 MG TABLET PO SCH ×3 (06:37→21:28)
[2019-07-14] MEDS: HEPARIN SOD (PORCINE) 5,000 UNIT/ML 1 ML VIAL SUBCUT SCH ×3 (06:38→21:27)
[2019-07-14] MEDS: LAMOTRIGINE 100 MG TABLET PO SCH ×4 (08:24→21:28)
[2019-07-14] MEDS: GUAIFENESIN 600 MG TABLET.SA PO SCH ×2 (10:09→21:28)
[2019-07-14] MEDS: CLONAZEPAM 1 MG TABLET PO SCH ×2 (10:09→21:28)
[2019-07-14] MEDS: CEFTRIAXONE 1 GM/D5W RTU 1 GM/50 ML RTUPB IV SCH (10:09)
[2019-07-14] MEDS: FAMOTIDINE 20 MG TABLET PO SCH ×2 (10:09→21:28)
[2019-07-14] MEDS: BACITRACIN ZINC OINTMENT 15 GM TP SCH ×2 (10:11→21:28)
--- NOTE | 2019-07-14 14:09 | PDOC PROGRESS REPORT ---
Subjective Progress Note for:: 07/14/19 Reason For Visit: PNEUMONIA 07/14/2019 History of COPD, CPAP dependent at night., Hypoxia, seizure disorder, PTSD, pneumonitis Patient is having a difficult time getting off of BiPAP Physical Exam Vital Signs: Temp Pulse Resp BP Pulse Ox 97.7 F 59 L 24 H 126/74 H 100 07/14/19 12:00 07/14/19 12:00 07/14/19 12:00 07/14/19 12:00 07/14/19 12:00 Intake & Output 07/13/19 07/14/19 07/15/19 06:59 06:59 06:59 Intake Total 2280 2962 50 Output Total 1600 3350 Balance 680 -388 50 Weight 94.8 kg 93.6 kg General appearance: PRESENT: mild distress, other - Much less respiratory distress in the last 48 hours Respiratory exam: PRESENT: wheezes - Expiratory wheezes, scattered rhonchi Cardiovascular exam: PRESENT: RRR. ABSENT: diastolic murmur, rubs, systolic murmur Neurological exam: PRESENT: alert, awake, oriented to person, oriented to place, oriented to time, oriented to situation, CN II-XII grossly intact. ABSENT: motor sensory deficit Psychiatric exam: PRESENT: appropriate affect, normal mood, other - Patient is in a much better mood today less depressed. ABSENT: homicidal ideation, suicidal ideation Results Laboratory Results: 07/13/19 08:45 07/13/19 08:45 07/08/19 14:33 Blood Blood Culture - Final NO GROWTH IN 5 DAYS 07/08/19 13:36 Blood Blood Culture - Final NO GROWTH IN 5 DAYS 07/08/19 07/08/19 07/08/19 13:36 13:36 13:36 Creatine Kinase 74 Troponin I < 0.012 NT-Pro-B Natriuret Pep 55 Impressions: Chest/Abdomen CTA 07/08/19 14:20 IMPRESSION: Patchy bilateral airspace disease consistent with edema or pneumonia. No pulmonary emboli. Chest X-Ray 07/12/19 07:00 IMPRESSION: Decreased patchy bilateral parenchymal opacities. Assessment and Plan - Diagnosis (1) Community acquired pneumonia Qualifiers: Laterality: unspecified laterality Qualified Code(s): J18.9 - Pneumonia, unspecified organism Is this a current diagnosis for this admission?: Yes (2) Hypoxemia Is this a current diagnosis for this admission?: Yes (3) PTSD (post-traumatic stress disorder) Is this a current diagnosis for this admission?: Yes (4) Pneumonia Qualifiers: Pneumonia type: due to unspecified organism Laterality: bilateral Lung location: upper lobe of lung Qualified Code(s): J18.9 - Pneumonia, unspecified organism Is this a current diagnosis for this admission?: Yes - Plan Summary Summary: 07/09/2019 According to the patient uses a CPAP machine at home It has been involved in pain management now for at least 4 years with [facility] Patient is currently on Levaquin IV Continue pulmonary toiletry and IV antibiotics Wound care to superficial wounds of the left lower extremity 07/10/2019 Patient's pneumonia may be a little worse on today's portable chest x-ray. Patient continues to require BiPAP, O2 sat is between 96 and 100% on FiO2 of 40%. Respiration rates are in the upper 30s White count remains basically normal Will add Rocephin to his Levaquin 07/11/2019 he remains on BiPAP and auscultation of his lungs reveal scattered rhonchi with wheezes. He is maintaining his sats 96 200% on FiO2 of 45 Have added Solu-Medrol loading dose of 125 mg and then 40 mg IV every 8 hours He still is not running fever temperature 97.4 blood pressure stable 135/71 respirations are anywhere from 20-38 I am watching the patient closely to prevent any further deterioration of his pulmonary functions or trending to ARDS I have spoken to respiratory therapy about him 07/12/2019 Patient's vital signs are significantly better today temperature 97.4 pulse is 66, blood pressure 129/67, duration rate is down to 23 Patient's portable chest x-ray from this morning is significantly improved from previous studies White count still slightly high but stable Blood gas this morning shows pH 7.44 PCO2 40 PO2 84.8 bicarb of 27 Chemistry panel is normal We will continue at this dose of steroids 40 mg IV every 6 hours of the 24 hours and then taper back Continue IV antibiotics Talk to the patient and his for a long time this morning Patient was seen by the sign designer last night at my request 07/13/2019 Patient's vital signs are very stable his respirations are now down to between 14 and 22. Maintaining his sats between 97 and 100% either on nasal cannula or BiPAP Labs are pending from today Lungs sound much clearer Will decrease steroids to every 8 hours, otherwise continue IV antibiotics Diagnosis #1 currently his pneumonia #2 is resolving pneumonitis 07/14/2019 Vital signs are actually very stable and improving, Pulse is in the 60s, blood pressure 137/72 sats are between 99 and 100% with FiO2 of 28 and a rate of only 4 L/min. This had been up to a rate of 35 WBCs are down to 10,000, electrolytes are normal. Will continue steroids every 8 hours today and tomorrow go to every 12 hours. In all likelihood patient will need to be discharged home on p.o. steroids Patient and his have been kept in the loop concerning his medical care on a regular daily basis - Time Time Spent with patient: 35 or more minutes
[2019-07-14] MEDS: LEVOFLOXACIN 750 MG/D5W RTU 750 MG/150 ML RTUPB IV SCH (17:59)
[2019-07-14] MEDS: NORMAL SALINE 1000 ML 1,000 ML IV PRN (18:02)
[2019-07-14] MEDS: ESCITALOPRAM OXALATE 10 MG TABLET PO SCH (21:28)
[2019-07-15] MEDS: IPRATROPIUM/ALBUTEROL 0.5-2.5 MG/3 ML AMPUL NEB SCH ×3 (02:19→13:27)
[2019-07-15] MEDS: METHYLPREDNISOLONE INJ 40 MG/1 ML SDV IV SCH ×2 (06:27→14:45)
[2019-07-15] MEDS: CARBAMAZEPINE 200 MG TABLET PO SCH ×2 (06:27→14:43)
[2019-07-15] MEDS: HEPARIN SOD (PORCINE) 5,000 UNIT/ML 1 ML VIAL SUBCUT SCH ×2 (06:27→14:45)
[2019-07-15] MEDS: NORMAL SALINE 1000 ML 1,000 ML IV PRN (08:09)
[2019-07-15] MEDS: LAMOTRIGINE 100 MG TABLET PO SCH ×3 (08:23→16:57)
[2019-07-15] MEDS: BACITRACIN ZINC OINTMENT 15 GM TP SCH (09:56)
[2019-07-15] MEDS: CEFTRIAXONE 1 GM/D5W RTU 1 GM/50 ML RTUPB IV SCH (09:57)
[2019-07-15] MEDS: CLONAZEPAM 1 MG TABLET PO SCH (09:57)
[2019-07-15] MEDS: GUAIFENESIN 600 MG TABLET.SA PO SCH (09:57)
[2019-07-15] MEDS: FAMOTIDINE 20 MG TABLET PO SCH (09:57)
[2019-07-15 17:33] VITALS: BP 126/56
[2019-07-15] MEDS: LEVOFLOXACIN 750 MG/D5W RTU 750 MG/150 ML RTUPB IV SCH (18:00)
--- NOTE | 2019-07-15 19:11 | PDOC DISCHARGE SUMMARY ---
Impression - Admit/DC Date/PCP Admission Date/Primary Care Provider: 07/08/19 16:46 ALAN TOUMATE, Discharge Date: 07/15/19 - Discharge Diagnosis (1) Community acquired pneumonia Is this a current diagnosis for this admission?: Yes (2) Hypoxemia Is this a current diagnosis for this admission?: Yes (3) PTSD (post-traumatic stress disorder) Is this a current diagnosis for this admission?: Yes (4) Pneumonia Is this a current diagnosis for this admission?: Yes (5) Posttraumatic stress disorder Is this a current diagnosis for this admission?: Yes (6) Depression Is this a current diagnosis for this admission?: Yes (7) Obstructive lung disease Is this a current diagnosis for this admission?: Yes - Assessment Summary: 07/09/2019 According to the patient uses a CPAP machine at home It has been involved in pain management now for at least 4 years with [facility] Patient is currently on Levaquin IV Continue pulmonary toiletry and IV antibiotics Wound care to superficial wounds of the left lower extremity 07/10/2019 Patient's pneumonia may be a little worse on today's portable chest x-ray. Patient continues to require BiPAP, O2 sat is between 96 and 100% on FiO2 of 40%. Respiration rates are in the upper 30s White count remains basically normal Will add Rocephin to his Levaquin 07/11/2019 he remains on BiPAP and auscultation of his lungs reveal scattered rhonchi with wheezes. He is maintaining his sats 96 200% on FiO2 of 45 Have added Solu-Medrol loading dose of 125 mg and then 40 mg IV every 8 hours He still is not running fever temperature 97.4 blood pressure stable 135/71 respirations are anywhere from 20-38 I am watching the patient closely to prevent any further deterioration of his pulmonary functions or trending to ARDS I have spoken to respiratory therapy about him 07/12/2019 Patient's vital signs are significantly better today temperature 97.4 pulse is 66, blood pressure 129/67, duration rate is down to 23 Patient's portable chest x-ray from this morning is significantly improved from previous studies White count still slightly high but stable Blood gas this morning shows pH 7.44 PCO2 40 PO2 84.8 bicarb of 27 Chemistry panel is normal We will continue at this dose of steroids 40 mg IV every 6 hours of the 24 hours and then taper back Continue IV antibiotics Talk to the patient and his for a long time this morning Patient was seen by the security system engineer last night at my request 07/13/2019 Patient's vital signs are very stable his respirations are now down to between 14 and 22. Maintaining his sats between 97 and 100% either on nasal cannula or BiPAP Labs are pending from today Lungs sound much clearer Will decrease steroids to every 8 hours, otherwise continue IV antibiotics Diagnosis #1 currently his pneumonia #2 is resolving pneumonitis 07/14/2019 Vital signs are actually very stable and improving, Pulse is in the 60s, blood pressure 137/72 sats are between 99 and 100% with FiO2 of 28 and a rate of only 4 L/min. This had been up to a rate of 35 WBCs are down to 10,000, electrolytes are normal. Will continue steroids every 8 hours today and tomorrow go to every 12 hours. In all likelihood patient will need to be discharged home on p.o. steroids Patient and his have been kept in the loop concerning his medical care on a regular daily basis 07/15/2019 Patient was medically stable today and both he and his felt comfortable him going home. O2 sat sitting on the bed on room air with no activity was 88% saturation. Any type of exertion or ambulation am sure would drop into the low 80s or upper 70s Prior to discharge we did secure home oxygen. Suspect patient will continue to need 2 L or 3 L all times until his pneumonia completely resolves Patient was sent out on a prescription for Medrol Dosepak She was also sent out with a prescription for Levaquin 500 mg 7 tablets Is to follow-up with his primary care provider Dr. Juarez and also pulmonology Dr. Miller Patient's diagnosis started off being pneumonia, he developed respiratory distress pneumonitis, and during his hospitalization was actually seen by the security system engineer who agreed with our current treatment. Patient was discharged home stable - Additional Information Resuscitation Status: Full Code Discharge Diet: As Tolerated Discharge Activity: Balance Activity w/Rest Referrals: DANNIE MILLER MD [ACTIVE STAFF] - 08/15/19 1:30 pm ALAN JUAREZ DO [Primary Care Provider] - 07/22/19 4:00 pm Prescriptions: Levofloxacin [Levaquin 500 mg Tablet] 500 mg PO DAILY 7 Days #7 tablet Methylprednisolone [Medrol Dosepack (4 mg/Tab) 21 Tab/Dosepak] 4 mg PO ASDIR PRN #21 tab.ds.pk PRN Reason: Home Medications: Albuterol Sulfate [Proair Respiclick] 2 puff IH Q4HP PRN 07/08/19 Ascorbic Acid [Vitamin C] 1,000 mg PO DAILY 07/08/19 Budesonide [Entocort EC] 3 mg PO DAILY 07/08/19 Budesonide [Entocort EC] 3 mg PO DAILYP PRN 07/08/19 Butalb/Acetaminophen/Caffeine [Fioricet (50-325-40 mg) Tablet] 1 tab PO BID 07/08/19 Carbamazepine [Tegretol] 200 mg PO Q8 07/08/19 Cholecalciferol (Vitamin D3) [Vitamin D3 1000 Unit Tablet] 2,000 unit PO DAILY 07/08/19 Clindamycin Phosphate [Clindamax Lotion] 1 applic TP BIDP PRN 07/08/19 Clonazepam [Klonopin 1 mg Tablet] 1 mg PO BID 07/08/19 Cyclobenzaprine HCl [Flexeril 10 mg Tablet] 10 mg PO TIDP PRN 07/08/19 Dexlansoprazole [Dexilant 60 mg Capsule] 60 mg PO Q6AM 07/08/19 Dextroamphetamine/Amphetamine [Adderall 5 mg Tablet] 15 mg PO NOON 07/08/19 Dextroamphetamine/Amphetamine [Adderall Xr 5 mg Capsule] 5 mg PO NOON 07/08/19 Dextroamphetamine/Amphetamine [Adderall Xr 5 mg Capsule] 15 mg PO QAM 07/08/19 Diclofenac Epolamine [Flector] 1 each TP Q12HP PRN 07/08/19 Diclofenac Potassium 50 mg PO Q6HP PRN 07/08/19 Dronabinol [Marinol 2.5 mg Capsule] 5 mg PO ACHS 07/08/19 Escitalopram Oxalate [Lexapro] 40 mg PO QHS 07/08/19 Ferrous Sulfate [Feosol 325 mg Tablet] 325 mg PO QHS 07/08/19 Lactobacillus Acidophilus [Probiotic] 1 each PO BID 07/08/19 Lamotrigine [Lamictal 100 mg Tablet] 100 mg PO NOON 07/08/19 Lamotrigine [Lamictal 100 mg Tablet] 200 mg PO TID@0800,1700,2000 07/08/19 Magnesium Oxide [Mag-Ox 400 mg Tablet] 800 mg PO QHS 07/08/19 Multivitamin [Tab-A-Maikel (Multiple Vitamin) Tablet] 1 tab PO DAILY 07/08/19 [place]-3/Dha/Epa/Fish Oil [[place] 3 500 Softgel] 1 each PO DAILY 07/08/19 Albuterol Sulfate [Ventolin 0.083% Neb 2.5 mg/3 mL Ampul] 2.5 mg NEB RTQ4HP PRN vial.neb 07/15/19 Bacitracin Zinc [Bacitracin Oint 15 gm] 1 applic TP Q12 tube 07/15/19 Guaifenesin [Mucinex Sr 600 mg Tablet.sa] 600 mg PO Q12 tablet.sa 07/15/19 Guaifenesin [Robitussin Syrup 200 mg/10 ml Ud Cup] 200 mg PO Q4HP PRN udc 07/15/19 Levofloxacin [Levaquin 500 mg Tablet] 500 mg PO DAILY 7 Days #7 tablet 07/15/19 Methylprednisolone [Medrol Dosepack (4 mg/Tab) 21 Tab/Dosepak] 4 mg PO ASDIR PRN #21 tab.ds.pk 07/15/19 History of Present Illiness History of Present Illness: FARIDA CHO is a 48 year old male Physical Exam Vital Signs: Temp Pulse Resp BP Pulse Ox 98.0 F 69 16 152/76 H 96 07/15/19 16:35 07/15/19 16:35 07/15/19 16:35 07/15/19 16:35 07/15/19 16:35 Intake & Output 07/14/19 07/15/19 07/16/19 06:59 06:59 06:59 Intake Total 2962 1200 1740 Output Total 3350 3120 450 Balance -388 -1920 1290 Weight 93.6 kg 93.2 kg 93.2 kg Results Laboratory Results: WBC 10.3 10^3/uL (4.0-10.5) 07/13/19 08:45 RBC 3.34 10^6/uL (4.35-5.55) L 07/13/19 08:45 Hgb 11.5 g/dL (13.5-17.0) L 07/13/19 08:45 Hct 33.1 % (37.9-51.0) L 07/13/19 08:45 MCV 99 fl (80-97) H 07/13/19 08:45 MCH 34.5 pg (27.0-33.4) H 07/13/19 08:45 MCHC 34.8 g/dL (32.0-36.0) 07/13/19 08:45 RDW 14.1 % (11.5-14.0) H 07/13/19 08:45 Plt Count 336 10^3/uL (150-450) 07/13/19 08:45 Lymph % (Auto) Not Reportable 07/13/19 08:45 [place] % (Auto) Not Reportable 07/13/19 08:45 Eos % (Auto) Not Reportable 07/13/19 08:45 Baso % (Auto) Not Reportable 07/13/19 08:45 Absolute Neuts (auto) Not Reportable 07/13/19 08:45 Absolute Lymphs (auto) Not Reportable 07/13/19 08:45 Absolute Monos (auto) Not Reportable 07/13/19 08:45 Absolute Eos (auto) Not Reportable 07/13/19 08:45 Absolute Basos (auto) Not Reportable 07/13/19 08:45 Total Counted 100 07/13/19 08:45 Seg Neutrophils % Not Reportable 07/13/19 08:45 Seg Neuts % (Manual) 89 % (42-78) H 07/13/19 08:45 Band Neutrophils % 1 % (3-5) L 07/13/19 08:45 Lymphocytes % (Manual) 7 % (13-45) L 07/13/19 08:45 Atypical Lymphs % 1 % (0) 07/13/19 08:45 Monocytes % (Manual) 2 % (3-13) L 07/13/19 08:45 Eosinophils % (Manual) 0 % (0-6) 07/13/19 08:45 Basophils % (Manual) 0 % (0-2) 07/13/19 08:45 Abs Neuts (Manual) 9.3 10^3/uL (1.7-8.2) H 07/13/19 08:45 Abs Lymphs (Manual) 0.8 10^3/uL (0.5-4.7) 07/13/19 08:45 Abs Monocytes (Manual) 0.2 10^3/uL (0.1-1.4) 07/13/19 08:45 Absolute Eos (Manual) 0.0 10^3/uL (0.0-0.6) 07/13/19 08:45 Abs Basophils (Manual) 0.0 10^3/uL (0.0-0.2) 07/13/19 08:45 WBC Morphology Comment S 07/13/19 08:45 Platelet Comment ADEQUATE 07/13/19 08:45 Anisocytosis SLIGHT 07/13/19 08:45 Macrocytosis SLIGHT 07/13/19 08:45 Carbonic Acid 1.23 mmol/L (1.05-1.35) 07/12/19 07:03 HCO3/H2CO3 Ratio 21:1 07/12/19 07:03 ABG pH 7.44 (7.35-7.45) 07/12/19 07:03 ABG pCO2 40.9 mmHg (35-45) 07/12/19 07:03 ABG pO2 84.8 mmHg (80-100) 07/12/19 07:03 ABG HCO3 27.0 mmol/L (20-24) H 07/12/19 07:03 ABG Total CO2 28.2 mmol/L (23-27) H 07/12/19 07:03 ABG O2 Saturation 96.7 % (94-98) 07/12/19 07:03 ABG Base Excess 2.6 mmol/L 07/12/19 07:03 VBG pH 7.41 (7.30-7.42) 07/08/19 13:36 VBG pCO2 44.3 mmHg (35-63) 07/08/19 13:36 VBG HCO3 27.6 mmol/L (20-32) 07/08/19 13:36 VBG Base Excess 2.5 mmol/L 07/08/19 13:36 FiO2 35% 07/12/19 07:03 Sodium 134.1 mmol/L (137-145) L 07/13/19 08:45 Potassium 4.6 mmol/L (3.6-5.0) 07/13/19 08:45 Chloride 92 mmol/L (98-107) L 07/13/19 08:45 Carbon Dioxide 31 mmol/L (22-30) H 07/13/19 08:45 Anion Gap 11 (5-19) 07/13/19 08:45 BUN 12 mg/dL (7-20) 07/13/19 08:45 Creatinine 0.65 mg/dL (0.52-1.25) 07/13/19 08:45 Est GFR ( Amer) > 60 (>60) 07/13/19 08:45 Est GFR (MDRD) Non-Af > 60 (>60) 07/13/19 08:45 Glucose 159 mg/dL (75-110) H 07/13/19 08:45 Lactic Acid 0.8 mmol/L (0.7-2.1) 07/08/19 13:36 Calcium 8.9 mg/dL (8.4-10.2) 07/13/19 08:45 Total Bilirubin 0.6 mg/dL (0.2-1.3) 07/08/19 13:36 Direct Bilirubin 0.2 mg/dL (0.0-0.4) 07/08/19 13:36 Neonat Total Bilirubin Not Reportable 07/08/19 13:36 Neonat Direct Bilirubin Not Reportable 07/08/19 13:36 Neonat Indirect Bili Not Reportable 07/08/19 13:36 AST 29 U/L (17-59) 07/08/19 13:36 ALT 33 U/L (<50) 07/08/19 13:36 Alkaline Phosphatase 79 U/L (38-126) 07/08/19 13:36 Creatine Kinase 74 U/L (55-170) 07/08/19 13:36 Troponin I < 0.012 ng/mL 07/08/19 13:36 NT-Pro-B Natriuret Pep 55 pg/mL (<125) 07/08/19 13:36 Total Protein 6.3 g/dL (6.3-8.2) 07/08/19 13:36 Albumin 3.7 g/dL (3.5-5.0) 07/08/19 13:36 07/08/19 07/08/19 13:36 13:36 Troponin I < 0.012 NT-Pro-B Natriuret Pep 55 Impressions: Chest X-Ray 07/08/19 13:30 IMPRESSION: Minimal ill-defined lingular opacities suggestive of pneumonia. No pleural effusion. Chest/Abdomen CTA 07/08/19 14:20 IMPRESSION: Patchy bilateral airspace disease consistent with edema or pneumonia. No pulmonary emboli. Chest X-Ray 07/10/19 00:00 IMPRESSION: Interval development of extensive bilateral airspace disease most marked in the periphery of the lung [place]. There is focal consolidation in the medial aspect of the left upper lobe. Chest X-Ray 07/12/19 07:00 IMPRESSION: Decreased patchy bilateral parenchymal opacities. Stroke Is this a Stroke Patient?: No Acute Heart Failure - Is this a Heart Failure Patient?: No
== END 2019-07-15 18:20 | disposition home or self-care (01) | DRG 195 ==
LOC: ER 12:56 → EH 16:46 → 5 18:19
PROVIDERS: ADMIT Internal Medicine; ATTEND Internal Medicine
PROC: 5A09357 Assistance with Respiratory Ventilation, Less than 24 Consecutive Hours, Continuous Positive Airway Pressure (ICD-10-PCS; principal; 2019-07-08)
PROC: 3E02340 Introduction of Influenza Vaccine into Muscle, Percutaneous Approach (ICD-10-PCS; 2019-07-15)
DX: J18.9 Pneumonia, unspecified organism (principal); J44.9 Chronic obstructive pulmonary disease, unspecified; F17.210 Nicotine dependence, cigarettes, uncomplicated; R09.02 Hypoxemia; F43.10 Post-traumatic stress disorder, unspecified; F32.9 Major depressive disorder, single episode, unspecified; G40.909 Epilepsy, unspecified, not intractable, without status epilepticus; K21.9 Gastro-esophageal reflux disease without esophagitis; G47.30 Sleep apnea, unspecified; Z23 Encounter for immunization; Z87.820 Personal history of traumatic brain injury; Z87.01 Personal history of pneumonia (recurrent)
CPT/HCPCS: 36415; 36600; 71045; 71275; 80048; 80053; 82550; 82803; 83605; 83880; 84484; 85025; 85027; 87040; 90686; 93005; 93010; 94660; 99291; A6266; J0696; J1644; J1956; J2920; J2930; J3475; J3490; J7030; J7620; S0028

== ENCOUNTER → 2019-07-29 | Outpatient (CLI) | payer OTHER ==
--- NOTE | 2019-07-29 15:18 | RADIOLOGY REPORT (SQ) ---
EXAM DESCRIPTION: CHEST PA/LATERAL COMPLETED DATE/TIME: 07/29/2019 2:45 pm REASON FOR STUDY: PNEUMONIA, UNSPECIFIED ORGANISM COMPARISON: 07/12/2019 EXAM PARAMETERS: NUMBER OF VIEWS: two views TECHNIQUE: Digital Frontal and Lateral radiographic views of the chest acquired. RADIATION DOSE: NA LIMITATIONS: none FINDINGS: LUNGS AND PLEURA: No opacities, masses or pneumothorax. No pleural effusion. MEDIASTINUM AND HILAR STRUCTURES: No masses or contour abnormalities. HEART AND VASCULAR STRUCTURES: Heart normal size. No evidence for failure. BONES: No acute findings. HARDWARE: None in the chest. OTHER: No other significant finding. IMPRESSION: NO SIGNIFICANT RADIOGRAPHIC FINDING IN THE CHEST. TECHNICAL DOCUMENTATION: JOB ID: [id number] [employer]- All Rights Reserved Reading location - IP/workstation name: [email or web address]
== END ==
LOC: OD 14:33
PROVIDERS: ATTEND Family Medicine
DX: J18.9 Pneumonia, unspecified organism (principal)
CPT/HCPCS: 71046

== ENCOUNTER → 2019-10-08 | Outpatient (CLI) | payer OTHER ==
--- NOTE | 2019-10-08 09:27 | ST Modified Barium Swallow ---
Recommendation - Recommendations Recommendations: No diet change recommendations. Patient may benefit from ENT referral to further evaluate pharyngeal tissue, some evidence of possible enlarged epiglottis. Medical Diagnoses - Medical Diagnoses Medical Diagnosis Description & ICD-10 Code(s): Dysphagia R13.10 Other Medical Diagnoses/Co-Morbidities: per patient report: reflux, COPD, seizure, pneumonia ST Modified Barium Swallow - General Date: 10/08/19 Referring Physician: Dr. Miller Risks/Precautions: None Date of Onset: 06/28/19 - approximate onset date Reason for Referral: difficulty swallowing - History History obtained from: Patient -: Medical - Patient acted as his own historian. Mr. Saavedra reports notiicng difficulty swallowing starting around June of 2019. He reports having occas ional difficulty swallowing solids, states that he will have to take sips of water to help wash things down. States this will happen a couple of times per week. No increased coughing associated with meals. Patient did have 2 pneumonias in the past year, in June and September of 2018. Patient is on reflux medication, and is scheduled for a barium swallow today after his modified barium swallow. Medications: perpatient report: dexilant, adderall, amphetamine, budesonide, carbamazepine, cholecalciferol, clonazepam, diclofenac, dronabinol, escitalopram, lactobacillus, lamotrigine, magnesium oxide, acetaminophen, rescue inhaler, daily breathing treatment. Allergies: none reported - Functional Status Prior Functional Status: INDEPENDENT: feeding - independnet Current Functional Limitations: feeding - occasional difficulty with solids - Subjective Patient/caregiver goal(s): safe swallow Cognitive-Linguistic Function: WNL Speech Intelligibility: WNL Current Nutritional Means: PO Current PO diet: Regular Current symptoms: Pneumonia, c/o Globus sensation Pain: Patient reports, 0/5 - Objective Assessment: Upright, Left Lateral - Food Trials Used Food trials used: Thin liquids, Pureed, Regular The patient: Was Able to Self Feed - Oral-Motor Skills Dentition: Full Velo-pharyngeal function: Unremarkable Laryngeal Function: clear voicing - Assessment Oral prep: Normal Labial closure: Adequate Leakage: None Mastication: Adequate Lingual Movement: Normal Oral stage: Normal for this Procedure - Pharyngeal Stage Initiation of Pharyngeal Stage Reflex: Normal Decreased laryngeal elevation: No Reduced Velopharyngeal Closure: no Reduced pressure generation: No reduced tongue-based retraction: No Pre-swallow pooling in valleculae: None Pre-Swallow pooling in pyriforms: None Reduced Thyro-Hyoid approximation: No Reduced epiglottic excursion: No Reduced pharyngeal peristalsis/contraction: No Multiple Swallows with: Cleared w/ Dry Swallow Post-swallow residulas vallecular: Moderate Post-Swallow residuals in pyriforms: Mild Reduced Cricopharyngeal opening: No - Esophageal Stage Esophageal Stage: Of note, osteophyte at level of C6-7 present. Bolus was seen to move around protrusion, was not blocked by it. - Fall Risk Assessment Medications/Conditions that increase fall risks include: Antidepressants, sedatives, anti-arrhythmic, diuretic, benzodiazipenes, neuroleptics. BP regulation problems, cardiac problems, balance or gait deficits, neurological problems. Is patient considered at risk for falls: no Fall Risk Actions Taken: No action needed - Behavioral Observations During evaluation process patient: was cooperative, able to answer questions, provided medical history - Treatment / Educational Needs: Treatment/Education Needs: Treatment consisted of patient education on the role of the Speech Pathologist. Patient's plan of care and golas were communicated as well as scheduling and attendance policies. Recommendations for initial home program were shared. Patient demonstrated understanding and verbalized agreement. - Impression/Summary Laryngeal Penetration: No Tracheal Aspiration: no Patient presents with: Pharyngeal stage dysph. - mild Risk of Aspiration: Minimal Evaluation and Findings: Patient demonstrated appropriate movement of musclature in pharynx and overall appropriate swallowing skills. It was noted that the epiglottis appeared larger than would be expected on this study. Some residue noted in valleculae, this was able to be cleared with a dry swallow or liquid wash. Movement of epiglottis was functional, however, it is possible that the size of the epglottis caused some increase in valleculae residue. Patient may wish to follow up with an ENT to further assess pharyngeal structure and tissues. - Recommendations Solid diet recommendations: Regular Liquid Diet Modification: Thin Pt/Family education and followup with MD: Yes Dysphagia therapy with RATE CLERK PASSENGER: no Reflux Precautions: Taught to Patient Recommended techniques: Fully Upright During Meal, Alternate Bites/Sips Information, Precautions and Recommendations: Patient (Written), Patient (Verbal) - Time Total Time: 30 - Plan of Care Strategies to optimize patient understanding include:: ongoing assessment of educational needs, implementation of educational strategies, and re-education. - - -: Thank you for the opportunity to work with this patient and his/her family. Should you have any questions about this patient's plan or progress, I can be reached at [phone].
--- NOTE | 2019-10-08 09:43 | RADIOLOGY REPORT (SQ) ---
EXAM DESCRIPTION: COOKIE SWALLOW COOKIE SWALLOW, BARIUM SWALLOW COMPLETED DATE/TIME: 10/08/2019 8:48 am REASON FOR STUDY: DYSPHAGIA (R13.10) R13.10 DYSPHAGIA, UNSPECIFIED COMPARISON: None. TECHNIQUE: Under fluoroscopic guidance, patient ingested effervescent granules followed by thick and thin barium. Fluoroscopic spot images and routine radiographic images acquired and stored on PACS. 12 MM BARIUM TABLET GIVEN: Barium tablet passed easily through the esophagus into the stomach without delay. RADIATION DOSE: Fluoro time: Cookie swallow 2 minutes 20 seconds, barium swallow 1.7 minutes. 6 images saved to PACS. LIMITATIONS: None. FLUOROSCOPY TIME: FLUORO TIME: 1.7 minutes 6 images saved to PACS. FINDINGS: NEUROMUSCULAR COORDINATION OF SWALLOW: Normal. No aspiration. ESOPHAGEAL MOTILITY: Normal peristalsis. No esophageal spasm. ESOPHAGEAL MUCOSA: Normal mucosa without masses or ulceration. GASTRO-ESOPHAGEAL JUNCTION: No hiatal hernia or reflux. NON-GI TRACT STRUCTURES: No significant finding. OTHER: No other significant finding. Modified barium swallow was performed in conjunction with barium swallow. The patient was brought into the fluoro room and placed upright on a modified barium swallow chair. The patient was then given multiple consistencies mixed with barium to swallow under live fluoroscopi c video guidance. According to the Speech Pathologist there was no penetration or aspiration. Please refer to the speech pathology report for further details. IMPRESSION: NORMAL DOUBLE CONTRAST BARIUM SWALLOW. NORMAL COOKIE SWALLOW WITH NO ASPIRATION IDENTIF IED. RECOMMENDATION: None COMMENT: None O or Quality ID [id number]: Final reports for procedures using fluoroscopy that document radiation exposure seymour von, or exposure time and number of fluorographic images (if radiation exposure indices are not avail able) TECHNICAL DOCUMENTATION: JOB ID: [id number] 2010 [employer]- All Rights Reserved Reading location - IP/workstation name: [email or web address]
== END ==
LOC: RAD 07:43
PROVIDERS: ATTEND Internal Medicine Pulmonary Disease
DX: R13.10 Dysphagia, unspecified (principal)
CPT/HCPCS: 74230

== ENCOUNTER → 2020-02-18 | Day surgery (SDC) | payer OTHER ==
[~2020-02-18] MED LIST changes: +LIDOCAINE 1% INJ-PF (10 MG/ML) 30 ML SDV ONE
--- NOTE | 2020-02-18 13:38 | Operative Report ---
PREOPERATIVE DIAGNOSIS: Lumbar Spondylosis POSTOPERATIVE DIAGNOSIS: Lumbar Spondylosis PROCEDURE: Radiofrequency Ablation of medial branches - RT L3 L4 / LT L3 L4 DATE OF PROCEDURE: [02/18/2020] ANESTHESIA: Local COMPLICATIONS: None CONSENT: A full description of the procedure was provided including benefits as well as possible complications. All questions were answered and informed consent was given and signed. ASA guidelines for fasting were verified prior to sedation. PROCEDURE IN DETAIL The patient was brought into the fluoroscopy suite and positioned into the prone position on the fluoroscopy table and allowed to adjust to a position of comfort. A grounding pad was placed on the right thigh. The lumbar region was widely prepped with a chloraprep solution, allowed to air dry and draped in standard sterile surgical fashion. Local anesthesia was provided by 1 mL of 1 % lidocaine delivered with a 25 g needle. A 17g 75 mm radiofrequency introducer needle was placed to the planned anatomic targets guided with intermittent fluoroscopy with a perpendicular approach to terminally place at the junction of the superior articular process and the transverse process of the bilateral L4, L5. The stylets were removed and radiofrequency probes with a 4mm active tip were then inserted. Needle tip position of the probes was verified in the AP, oblique, and lateral views. At each site, the medial branch nerve was stimulated at 2 Hz to a maximum 1-2 volts determined to finalize safe needle and electrode placement. The patient was awake and responsive during this portion of the procedure. Each target was anesthetized with 1-2 mL of 2 % K for anesthesia for lesioning and then each target was lesioned at 80 degrees Celsius for 2 minutes and 30 seconds. Tissue impedences were noted to be between 250 and 500 Ohms. A solution of Sensorcaine and Depo-Medrol was injected at each site. electrodes and needles were then removed and bandages placed over the needle placement sites, the patient then returned to the supine position on a stretcher and transported to the recovery room without hemodynamic, neurologic, or allergic reactions. Fluoroscopic images were printed for hard copy recording and digitally archived. POST PROCEDURE EVALUATION: The patient was comfortable in the recovery room. The patient is aware that pain may worsen before remitting and 4 6 weeks may be required prior to the onset of pain relief. IMPRESSION: 1. Technically successful bilateral L3 L4 medial branch radiofrequency neurotomy for denervation bilaterally without complication. 2. RTC in 6 weeks. 3. Estimated Blood Loss: 5 mL's 4. Fluoroscopy time: See nursing record for seconds
== END ==
LOC: RAD 12:39
PROVIDERS: ATTEND Student in an Organized Health Care Education/Training Program
DX: M47.816 Spondylosis without myelopathy or radiculopathy, lumbar region (principal)
CPT/HCPCS: 64635; 64636; J3490 ×3; J1030